=== PATIENT | male | born 1945 | race Caucasian/White ===

== ENCOUNTER 2016-12-05 08:46 | Inpatient (IN) ==
[2016-12-05] MEDS ORDERED: Albuterol 2.5 MG/3 ML NEBULIZER IH ONE (09:03)
[2016-12-05] MEDS ORDERED: CeFAZolin Pre 2,000 MG/100 ML 2,000 MG/100 ML BAG IVPB ONE (09:03)
[2016-12-05] MEDS ORDERED: Vancomycin 1,500 MG in D5% in Water 250 ML IVPB ONE ×2 (09:03→22:00)
[2016-12-05] MEDS ORDERED: Albuterol 2.5 MG/3 ML NEBULIZER ONE (09:07)
[2016-12-05] MEDS: Ringers Solution, Lactated 1,000 ML IVC SCH ×2 (09:25→13:36)
[2016-12-05] MEDS ORDERED: Acetaminophen IV 1,000 MG/100 ML INFUS..BTL IVPB ONE (09:58)
[2016-12-05] MEDS ORDERED: Famotidine 20 MG/2 ML VIAL IVP ONE (09:58)
[2016-12-05] MEDS ORDERED: Lidocaine -MPF 4% 5 ML AMPUL ONE (10:08)
[2016-12-05] MEDS ORDERED: *HR* Propofol 200 MG/20 ML VIAL IVP ONE (10:08)
[2016-12-05] MEDS ORDERED: *HR* Rocuronium Bromide 50 MG/5 ML VIAL ONE (10:08)
[2016-12-05] MEDS ORDERED: *HR* Succinylcholine 200 MG/10 ML VIAL IVP ONE (10:08)
[2016-12-05] MEDS ORDERED: Dexamethasone 4 MG/ML VIAL ONE (10:08)
[2016-12-05] MEDS ORDERED: Lidocaine -MPF 2% 2 ML VIAL ONE (10:08)
[2016-12-05] MEDS ORDERED: Ondansetron 4 MG/2 ML VIAL ONE (10:08)
[2016-12-05] MEDS ORDERED: *HR* FentaNYL (PF) 100 MCG/2 ML VIAL ONE ×2 (10:10→13:06)
--- NOTE | 2016-12-05 10:10 | Anesthesia Evaluation PreOp ---
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 Other Medical History: Denies Any Significant HX Anesthesia History: No Prior Anesthetic Complications Alcohol Use: none Drug use: none Medications and Allergies Aspirin 81 mg PO DAILY 09/29/15 [History] Atorvastatin Calcium [Lipitor] 20 mg PO BID 09/29/15 [History] Dutasteride [Avodart] 0.5 mg PO DAILY 09/29/15 [History] Fenofibrate [Lofibra] 160 mg PO DAILY 09/29/15 [History] Metoprolol [Lopressor] 25 mg PO BID 09/29/15 [History] [place] Oil/[place]-3 Fatty Acids [Fish Oil 500 mg Softgel] 1 each PO DAILY [History] Tamsulosin [Flomax] 0.4 mg PO HS 09/29/15 [History] Valsartan [Diovan] 80 mg PO DAILY 09/29/15 [History] Acetaminophen [Tylenol] 650 mg PO BID 11/27/16 [History] Apixaban [Eliquis] 5 mg PO BID 11/27/16 [History] Multivitamin,Therapeutic [Thera-Tabs] 1 tab PO DAILY 11/27/16 [History] Allergies GORDO Inhibitors Adverse Reaction (Verified 12/05/16 09:55) Cough - Meds/Allergy Pre-op Review Medications Reviewed: Yes Allergies Reviewed: Yes Beta Blockers on Current Med List: Yes (Took Metoprolol last night 2029) Anesthesia Results - Labs Laboratory Tests 11/20/16 11/20/16 12:36 12:36 Hgb 13.2 Hct 38.3 Plt Count 241 Sodium 140 Potassium 4.0 BUN 17 Creatinine 0.85 - Imaging EKG: report reviewed (SR Rt BBB, old anterior infarct) Additional studies: EF 45% Anesthesia Exam O2 Sat Height 1.83 m Height 1.83 m Height 1.83 m Weight 105.687 kg Weight 105.687 kg Weight 105.687 kg O2 Sat by Pulse Oximetry 97 Vital Signs Temp Pulse Resp BP Pulse Ox 98.2 F 71 18 124/74 97 12/05/16 09:35 12/05/16 09:35 12/05/16 09:35 12/05/16 09:35 12/05/16 09:35 Height: 6'0 Weight: 233 lbs NPO (# of Hours): MN Pain Scale: 0 - HEENT Pupil (Motor): Pupils equal, EOMI Mallampati: III Denture Type: Upper: Complete Oral Opening: Less than or equal to 3 - FINANCIAL ANALYST ACCOUNTANT LOC: Oriented FINANCIAL ANALYST ACCOUNTANT Motor: Normal RUE, Normal LUE, Normal RLE, Normal LLE, Normal Face FINANCIAL ANALYST ACCOUNTANT Sensory: Normal: RUE, LUE, RLE, LLE, Face - Cardiac Rhythm: Regular Murmur: None JVD: No Carotid Bruit: No - Pulmonary Breath Sounds: bilateral Clear Respiratory Effort: Symmetrical Anesthesia Assess/Plan ASA Score: 3 (PVD CAD HTN) Modified [place] Scale for Level of Consciousness: Cooperative, oriented, and tranquil Anesthetic Plan: General Monitoring Plan: Standard Monitors, A-Line Recovery Plan: PACU (Discussed GA, A-line, agrees to proceed)
[2016-12-05] MEDS ORDERED: Vancomycin 1,000 MG VIAL ONE (11:16)
[2016-12-05] MEDS ORDERED: Heparin 1,000 UNITS/500 mL NS 0 ML ONE (11:16)
--- NOTE | 2016-12-05 11:27 | History & Physical Report ---
Date of Encounter: 12/05/16 Time of Encounter: 11:05 24 Hour HP Update - Instructions Instructions: If the History and Physical is less than 30 days old and was completed prior to A.M. admission and or procedure and has NOT been updated on calendar day of procedure please complete this update prior to performing procedure. - Update Patient reports changes in Medical Condition: No Changes in assessment/condition: No Changes in Medication: No Preop tests/diagnostics Reviewed: Yes Surgery Remains Indicated: Yes Consent for Planned Operative Procedure(s) Verified: Yes - Pre-Operative Checklist Preoperative Checklist Indicated: Yes Prophylactic Antibiotic Ordered: Yes (Vancomycin due to risk of MRSA) Home Medications Include Beta Arjun: Yes Beta Arjun Taken Today (Day of Surgery): Yes Beta Arjun Taken Yesterday (Day Prior to Surgery): Yes Is VTE Prophylaxis Indicated?: Yes
[2016-12-05] MEDS ORDERED: Heparin 1,000 UNITS/500 mL NS 500 ML ONE (11:28)
[2016-12-05] MEDS ORDERED: Acetaminophen IV 0 MG/0 ML INFUS..BTL ONE (11:29)
[2016-12-05] MEDS ORDERED: *HR* Heparin 5,000 UNIT/ML VIAL ONE ×2 (12:58→13:40)
[2016-12-05] MEDS ORDERED: Water for inj. (sterile) 10 ML IV ONE (12:58)
[2016-12-05] MEDS ORDERED: Ketorolac 15 MG/ML VIAL IVP ONE (13:44)
[2016-12-05] MEDS ORDERED: *HR* HYDROmorphone (PF) 1 MG/ML SYRINGE IVP PRN (13:44)
[2016-12-05] MEDS ORDERED: *HR* Labetalol 100 MG/20 ML MDV IVP PRN (13:44)
[2016-12-05] MEDS ORDERED: *HR* HYDROmorphone 2 MG/ML SYRINGE ONE (14:15)
--- NOTE | 2016-12-05 15:30 | Operative Note ---
Date of procedure: 12/05/16 Pre-op diagnosis: Peripheral vascular disease with disabling claudication Post-op diagnosis: same Procedure: 1. Right iliofemoral endarterectomy. 2. Right deep femoral endarterectomy. 3. Right common femoral to above knee popliteal artery bypass with 6mm Distaflo Minicuff PTFE graft. Complications: None Anesthesia: PAULO Surgeon: Tommy Stevens Registry Np: Esteban Miles Estimated blood loss (cc): 200 Specimen: Right lower extremity plaque Condition: stable Disposition: PACU Procedure in Detail: Indications: The patient is a 71 year old male with multiple medical comorbidities including coroanary artery disease, diabetes, hypertension COPD and hyperlipidemia who was found to have peripheral vascular disease with disabling claudication. He was found to have a right superficial femoral artery occlusion and severe right iliofemoral disease by angiogram. Revascularization with endarterectomy and bypass was recommended to promote healing, alleviate symptoms and reduce risk of limb loss. Procedure: An oblique incision was made over the right groin sharply. Hemostasis was obtained with electrocautery. Through a process of blunt, sharp , and electrocautery dissection, the right femoral vessels were dissected circumferentially and surrounded with vessel loops. The vessel was noted to be firm with calcifications. An incision was made on the right medial distal thigh sharply. Hemostasis was obtained with electrocautery. Through a process of blunt, sharp, and electrocautery dissection, the right above-knee popliteal artery was dissected proximally and distally and surrounded with vessel loops. A graft was tunneled between the popliteal and femoral incisions. The patient received 5000 units of heparin intravenously. The popliteal vessels were occluded and a longitudinal arteriotomy was made in the popliteal artery. The distal end of the graft was sutured in place with a running 6-0 Prolene, but not tied. Heparinized saline was infused into the lumen. Tension was applied to the femoral vessel loops. An arteriotomy was made in the common femoral artery and extended proximally and distally. Heaviliy calcified, irregular and friable plaque was noted to be present. The plaque was highly stenotic. This resulted in minimal flow was noted from the external iliac and deep femoral and superficial femoral arteries upon release of the loops. Therefore, proximal dissection was performed along the common femoral artery and above, the distal external iliac artery was dissected under the inguinal ligament until a pulse could be palpated. The artery was clamped at this level. An iliofemoral endarterectomy was the performed with a dental freer. After the plaque was removed, strong antegrade pulsatile flow was noted from the external iliac artery. The artery was then clamped. A deep femoral endarterectomy was then performed with a dental freer. Upon release of the loop, strong retrograde flow was noted from the deep femoral artery. The artery was then reoccluded. Heparinized saline was infused into the arterial lumen and the proximal limb of the bypass graft was cut to fit the defect. The graft was anastamosed with a running 6-0 Prolene. The vessels were flushed through the graft and heparin was infused into the lumen. The graft was clamped with an atraumatic clamp. Thrombin and gelfoam were used at the proximal anastamosis. The distal arterial anastomosis suture line was completed. Prior to completing the closure , the popliteal vessels were flushed and reoccluded. Heparinized saline was infused into the lumen. The anastamosis was tied and then flow was restored. Polyphasic signals were noted distal to the distal anastomosis as well as at the posterior tibial artery. Wounds were irrigated with antibiotic-containing saline. Thrombin and gelfoam were used to aid in hemostasis. Platelet rich and platelet poor plasma were infused into the wounds. Meticulous hemostasis was obtained throughout the wound with electrocautery. Wounds were reapproximated with layers of 2-0 and 3-0 Vicryl. Skin was reapproximated with 3-0 Monocryl. Sterile dressing was applied. The patient was extubated and taken to recovery room in stable condition.
--- NOTE | 2016-12-05 15:50 | Operative Note ---
Date of procedure: 12/05/16 Pre-op diagnosis: PAD/claudication Post-op diagnosis: same Procedure: Right femoral to above-knee popliteal artery bypass graft using 6 mm PTFE Distaflo mini cuff device Right common femoral artery endarterectomy Complications: None Anesthesia: ADRIÁNA Surgeon: Tommy Stevens Co-Surgeon: Esteban Miles Estimated blood loss (cc): 200 Specimen: Right femoral plaque Condition: stable Disposition: PACU Procedure in Detail: History Jeremy Camarillo is a 71-year-old white male with significant history of vascular disease. He has dense calcific lesions and obstruction of the right superficial femoral artery. The patient also has cardiac disease and is status post a TAVR at [facility]. Procedure After informed consent was obtained the patient was taken to the operating room. General endotracheal anesthesia was established. The right lower extremity was sterilely prepped and draped. A timeout protocol was observed. A 2 team surgical approach was utilized for this procedure due to the patient's comorbid conditions. As noted above he is status post recent TAVR. This also would facilitate intraoperative complex decision making and to minimize blood loss and anesthetic time. Dissections were then initiated at the common femoral and the above-knee popliteal artery simultaneously. The vessels were found to be markedly diseased. Inflammatory changes were noted at the groin level thought secondary to previous multiple cardiac catheterizations. There were also inflammatory changes involving the above-knee popliteal artery and veins. After appropriate dissection was performed and control obtained of the vessels a subsartorial tunnel was created. A 6 mm PTFE Distaflo mini cuff collateral graft was selected due to the patient's anatomy. Heparin was then administered after the graft was tunneled through the subsartorial space. After 3 minute delay was observed the arteries were clamped. The patient required right common femoral artery endarterectomy. There was dense and thick and calcific plaque present. This was a very complex plaque as it could not be removed in total but required removal in a piecemeal fashion. Simultaneous with this the distal anastomosis was created. The above-knee popliteal area that was opened headache area that was soft and calcific area was proximal and distal. The mini cuff Distaflo graft was anastomosed in end-to-side fashion to this above-knee popliteal artery. Once the common femoral artery endarterectomy was completed the proximal anastomosis was then performed in an end-to-side fashion using 6-0 Prolene suture. After appropriate backbleeding and flushing the graft was opened and pulsatile flow was once again restored into the right calf. An excellent multiphasic Doppler signal was identified over the ankle vessel. The wounds were then irrigated and hemostasis achieved. The wounds were then closed in layers using absorbable suture. Dry sterile dressings were then applied. There were no intraoperative complications. The patient tolerated the procedure well. The estimated blood loss was 200 mL. The patient was extubated in the operating room and taken to the recovery room in stable condition.
--- NOTE | 2016-12-05 15:57 | Anesthesia Evaluation Post Op ---
Date of Encounter: 12/05/16 Time of Encounter: 15:56 - Vital Signs Vital Signs: Vital Signs/O2 Sat/Glucose, Most Current Temp Pulse Resp BP Pulse Ox 12/05/16 15:54 70 16 150/84 94 L 12/05/16 15:44 98.4 F 69 16 151/74 96 12/05/16 15:34 62 16 155/72 97 12/05/16 15:24 68 14 138/71 96 12/05/16 15:14 97.8 F 72 16 144/71 98 - Lungs Lungs: Clear Ascult./Percussion - Airway Airway: Non-obstructed - Cardiovascular Regular Rate - Mental Status Mental Status: Alert & Oriented, Answers Appropriately - Pain Pain Scale: 0 - Nausea Vomiting Nausea Vomiting: Not Present - Hydration Hydration: Ice chips - Discharge PostOp Status: Transfer Patient to floor
[2016-12-05] MEDS ORDERED: Ondansetron 4 MG/2 ML VIAL IVP PRN (16:48)
[2016-12-05] MEDS ORDERED: Naloxone 0.4 MG/ML INJ IVP PRN (16:48)
[2016-12-05] MEDS ORDERED: *HR* HYDROcodone/Acet 5/325 mg TABLET PO PRN (16:48)
[2016-12-05] MEDS ORDERED: Acetaminophen 325 MG TABLET PO PRN (16:48)
[2016-12-05] MEDS ORDERED: *HR* Morphine 2 MG/ML SYRINGE IVP PRN (16:48)
[2016-12-05] MEDS: *HR* Metoprolol 5 MG/5 ML VIAL IVP SCH ×3 (18:11→23:54)
[2016-12-05] MEDS: ceFAZolin 2,000 MG in D5% in Water 100 ML IVPB SCH ×2 (18:11→23:54)
[2016-12-05] MEDS: APIXABAN 5 MG TABLET PO SCH (21:41)
[2016-12-05] MEDS: *HR* OxyCODONE Immed Rel 5 MG TABLET PO PRN (23:59)
[2016-12-06 05:19] LABS: Basophils % 0.2 %; Hematocrit 34.7 % (37.5-50.1); Hemoglobin 11.7 g/dL (12.9-16.9); Immature Granulocytes % 0.3 % (0-4); Lymphocytes # 1.2 K/mcL (0.6-4.6); Mean Corpuscular HGB Conc 33.7 g/dL (31.6-35.5); Mean Corpuscular Hemoglobin 31.3 pg (28.0-33.3); Mean Corpuscular Volume 92.8 fL (83.0-100.0); Mean Platelet Volume 9.3 fL (9.4-12.4); Monocytes # 0.7 K/mcL (0.0-1.3); Monocytes % 8.2 %; Neutrophils # 7.1 K/mcL (1.6-8.9); Platelet Count 283 K/mcL (140-400); Red Blood Count 3.74 M/mcL (4.19-5.50); Red Cell Distribution Width 12.7 % (11.5-14.5); Segmented Neutrophils % 78.3 %
[2016-12-06 05:46] LABS: BUN/Creatinine Ratio 18 (6-26); Blood Urea Nitrogen 15 mg/dL (8-26); Calcium 8.6 mg/dL (8.6-10.8); Carbon Dioxide 23 mEq/L (19-29); Chloride 102 mEq/L (98-109); Glucose 122 mg/dL (70-99); Osmolality,Calculated 286 (280-300); Potassium 4.1 mEq/L (3.5-4.5); Sodium 137 mEq/L (136-145); eGFR For African Americans > 60 (> 60); eGFR For Non-African Americans > 60 (> 60)
[2016-12-06] MEDS ORDERED: *HR* Heparin 5,000 UNIT/ML VIAL SQ SCH (06:00)
[2016-12-06] MEDS: *HR* Metoprolol 5 MG/5 ML VIAL IVP SCH (06:22)
[2016-12-06 07:29] VITALS: BP 147/76
--- NOTE | 2016-12-06 07:43 | Discharge Summary ---
Date of Encounter: 12/06/16 Time of Encounter: 10:30 - Discharge Diagnosis (1) Atherosclerosis of [place] arteries of extremities with intermittent claudication, right leg Priority: Primary Status: Chronic Comments: The patient is postoeprative day #1 after right femoral to popliteal artery bypass and right lower extremity endarterectomy. He is feeling much better. His foot is warm. His incisions are healing and his compartments are soft. He will be discharged today. (2) CAD (coronary artery disease) Priority: Secondary Status: Chronic Qualifiers: Coronary Disease-Associated Artery/Lesion type: [place] artery [place] vs. transplanted heart: [place] heart Associated angina: without angina Qualified Code(s): I25.10 - Atherosclerotic heart disease of [place] coronary artery without angina pectoris (3) Mixed hyperlipidemia Priority: Secondary Status: Chronic (4) Essential hypertension Priority: Secondary Status: Chronic Comments: He was counseled regarding atherosclerotic risk factor reduction. (5) Morbid obesity Priority: Secondary Status: Chronic Qualifiers: Obesity type: due to excess calories Qualified Code(s): E66.01 - Morbid ( severe) obesity due to excess calories (6) COPD (chronic obstructive pulmonary disease) Priority: Secondary Status: Chronic Qualifiers: COPD type: emphysema Emphysema type: panlobular Qualified Code(s): J43.1 - Panlobular emphysema (7) History of aortic valve replacement Priority: Secondary Status: Chronic Comments: Percutaneous valve replacement 10/18/16. - Discharge Medications Prescriptions: OxyCODONE Immed Rel [Roxicodone 5 MG] 1 tab PO Q4H PRN #40 tablet PRN Reason: POSTOPERATIVE PAIN Home Medications: Aspirin 81 mg PO DAILY 09/29/15 [History] Atorvastatin Calcium [Lipitor] 20 mg PO BID 09/29/15 [History] Dutasteride [Avodart] 0.5 mg PO DAILY 09/29/15 [History] Fenofibrate [Lofibra] 160 mg PO DAILY 09/29/15 [History] Metoprolol [Lopressor] 25 mg PO BID 09/29/15 [History] [place] Oil/[place]-3 Fatty Acids [Fish Oil 500 mg Softgel] 1 each PO DAILY [History] Tamsulosin [Flomax] 0.4 mg PO HS 09/29/15 [History] Valsartan [Diovan] 80 mg PO DAILY 09/29/15 [History] Acetaminophen [Tylenol] 650 mg PO BID 11/27/16 [History] Apixaban [Eliquis] 5 mg PO BID 11/27/16 [History] Multivitamin,Therapeutic [Thera-Tabs] 1 tab PO DAILY 11/27/16 [History] OxyCODONE Immed Rel [Roxicodone 5 MG] 1 tab PO Q4H PRN #40 tablet 12/06/16 [Rx] Allergies/Adverse Reactions: Allergies GORDO Inhibitors Adverse Reaction (Verified 12/05/16 09:55) Cough Date of admission: 12/05/16 16:29 Primary care physician: Tammy Jameson CNP Procedure(s) Performed: Right femoral to popliteal artery bypass Discharging clinician: Tommy Stevens Anticipated date of discharge: 12/10/16 - Patient Status Disposition: Home, Self-Care Condition: Good Functional capacity at discharge: independent ambulation Overall status at discharge: patient is back to baseline - Discharge Instructions Instructions: Oxycodone, Rapid Release (By mouth), Heart Healthy Diet (DC), Femoropopliteal Bypass (DC), Peripheral Vascular Disorders (DC) Follow Up With: Tommy Stevens MD [Partnered Physician] - 01/14/17 3:30 pm Tammy Jameson CNP [Primary Care Provider] - 12/12/16 4:00 pm Additional Instructions: May remove bandages and shower on 12/07/2016. Wash wound gently and pat to dry. Place dry gauze on wound daily for 7 days. No tub baths or swimming until 12/28/2016. Call Dr. Stevens at [phone] with questions or concerns. - Diet and Activity Activity: increase activity as tolerated Diet: low fat, low cholesterol - Hospital Course Hospital course: Mr. Camarillo is a 71 year old male with multiple medical comorbidities who was admitted on 12/05/16. He underwent a right lower extremity endarterectomy and right femoral to popliteal artery bypass. He tolerated the procedure well. On postoperative day #1 his pain was controlled. He was alert and comfortable. His compartments were soft and his feet were warm. He was discharged in stable condition without complication. - Time Spent with Patient Total time spent providing and/or coordinating discharge services: Exam Vital Signs, Last 4 Hours Temp Pulse Resp BP Pulse Ox 12/06/16 07:28 97.9 F 81 18 147/76 95 12/06/16 04:48 98.5 F 77 15 154/75 95 General: Present: Conversant, No Apparent Distress HEENT: Present: Pupils equal Neck: Absent: JVD Cardiac: Present: No Murmur Lungs: Present: Normal Breath Sounds Neuro: Present: Alert and responsive, No focal deficits noted Abdomen: Present: Soft, Non-tender Vascular: Present: Normal capillary refill, Pulse, normal, Surgical incisions ( clean dry and intact without erythema, hematoma or drainage). Absent: Cyanosis , Edema Skin: Present: No rashes noted on visualized skin - VTE Documentation of Mechanical Device: Intermittent pneumatic compression device
[2016-12-06] MEDS ORDERED: Valsartan 80 MG TABLET PO SCH (09:00)
[2016-12-06] MEDS ORDERED: Finasteride 5 MG TABLET PO SCH (09:00)
[2016-12-06] MEDS ORDERED: Multivit/Ca/Min/Fe/FA 1 TAB TABLET PO SCH (09:00)
[2016-12-06] MEDS ORDERED: Aspirin 81 MG TAB.CHEW PO SCH (09:00)
[2016-12-06] MEDS ORDERED: (Salmon Oil/Omega-3 Fatty Acids [Fish Oil 500 Mg Soft PO SCH (09:00)
[2016-12-06] MEDS ORDERED: Fenofibrate 54 MG TABLET PO SCH (09:00)
[2016-12-06] MEDS: APIXABAN 5 MG TABLET PO SCH (09:16)
[2016-12-06] MEDS: *HR* OxyCODONE Immed Rel 5 MG TABLET PO PRN (11:22)
== END 2016-12-06 11:50 | disposition home or self-care (01) | DRG 272 ==
LOC: SAMDAY 08:46 → 2NNU 16:29
PROVIDERS: ADMIT Surgery; ATTEND Surgery

== ENCOUNTER 2018-05-15 11:37 | Observation (INO) ==
--- NOTE | 2018-05-15 12:17 | Emergency Department Note ---
Disposition Clinical Impression: Weakness, History of aortic valve replacement Dyspnea Qualifiers: Dyspnea type: unspecified Qualified Code(s): R06.00 - Dyspnea, unspecified Disposition: Admitted As Inpatient Condition: Fair Referrals: Lake Brooks MD [Primary Care Provider] - Time of Disposition: 13:25 SOB HPI - General Chief Complaint: ED Shortness of Breath/Dyspnea Stated Complaint: JADE Time Seen by Provider: 05/15/18 11:42 Source: patient Mode of arrival: wheelchair Limitations: no limitations Nursing Notes Reviewed: Yes Vital Signs Reviewed: Yes - History of Present Illness 72-year-old male with a history of CAD status post bypass, hypertension, aortic valve replacement presents for evaluation of dyspnea and generalized weakness. Patient also describes fatigue. Family states the patient has become more dyspneic over the past "few days". States the patient has progressive dyspnea mostly with exertion. Patient also states he has been sleeping more. Notes generally feeling weak. Denies any chest pain. No fevers. No nausea or vomiting. No orthopneic symptoms for the patient. Does state that he has a pig valve in the past. Patient also reports he has a history of A. fib. Patient also had some intermittent leg swelling. Patient denies any problems pain urinating. No history of any kidney disease. - Related Data Home Medications Medication Instructions Recorded Confirmed Aspirin 81 mg PO DAILY 09/29/15 05/15/18 Atorvastatin Calcium [Lipitor] 20 mg PO BID 09/29/15 05/15/18 Dutasteride [Avodart] 0.5 mg PO DAILY 09/29/15 05/15/18 Fenofibrate [Lofibra] 160 mg PO DAILY 09/29/15 05/15/18 Metoprolol [Lopressor] 25 mg PO BID 09/29/15 05/15/18 [place] Oil/[place]-3 Fatty Acids 1 each PO DAILY 09/29/15 05/15/18 [Fish Oil 500 mg Softgel] Tamsulosin [Flomax] 0.4 mg PO HS 09/29/15 05/15/18 Acetaminophen [Tylenol] 650 mg PO BID 11/27/16 05/15/18 Apixaban [Eliquis] 5 mg PO BID 11/27/16 05/15/18 Multivitamin,Therapeutic 1 tab PO DAILY 11/27/16 05/15/18 [Thera-Tabs] Losartan/Hydrochlorothiazide 1 tab PO DAILY 05/15/18 05/15/18 [Losartan-Hctz 50-12.5 mg Tab] Tizanidine HCl 2 mg PO QPM 05/15/18 05/15/18 Allergies Allergy/AdvReac Type Severity Reaction Status Date / Time GORDO Inhibitors AdvReac Cough Verified 12/05/16 09:55 All systems ED: reviewed and negative except as stated. Constitutional: Denies: fever Cardiovascular: Denies: chest pain Respiratory: Denies: cough Gastrointestinal: Denies: abdominal pain, nausea, vomiting Past Medical History - Past Medical History Source: patient Medical history: Reports: hyperlipidemia, hypertension, myocardial infarction, other Surgical history: Reports: angioplasty/stent, coronary bypass (CABG) Psychiatric history: Reports: no psych history - Social History Smoking Status: Former smoker Smokeless Tobacco Status: No Alcohol use: Reports: none Drug use: Reports: none Physical Exam - General Limitations: no limitations General appearance: alert, in no apparent distress - Head Head exam: atraumatic, normal inspection - Eye Eye exam: Present: normal appearance, EOMI - ENT ENT exam: normal exam, mucous membranes moist - Neck Neck exam: Present: normal inspection, trachea midline - Chest Chest inspection: Present: normal inspection, symmetric chest wall rise - Respiratory Respiratory exam: Present: normal lung sounds bilaterally. Absent: respiratory distress - Cardiovascular Cardiovascular exam: Present: regular rate, normal rhythm. Absent: systolic murmur - Abdominal Exam Abdominal exam: Present: soft. Absent: guarding, rebound - Extremities Exam Extremities exam: Present: normal inspection. Absent: pedal edema - Expanded Lower Extremity Exam Neurovascular/Tendon exam: Present: normal capillary refill - Neurological Exam Neurological exam: Present: alert - Skin Skin exam: Present: warm, dry, intact, normal color Course Course Narrative: Patient will get basic cardiopulmonary screening evaluation. Initial concerns for subclinical congestive heart failure. Denying any chest pain. Patient will be admitted to the hospital service. Vital Signs Temperature 98.4 F 05/15/18 11:40 Pulse Rate 75 05/15/18 11:40 Respiratory Rate 18 05/15/18 11:40 Blood Pressure 129/75 05/15/18 11:40 O2 Sat by Pulse Oximetry 97 05/15/18 11:40 Temperature 98.4 F 05/15/18 13:50 Pulse Rate 75 05/15/18 13:50 Respiratory Rate 14 05/15/18 13:50 Blood Pressure 133/70 05/15/18 15:15 O2 Sat by Pulse Oximetry 97 05/15/18 13:50 Oxygen Delivery Oxygen Delivery Room Air Shortness of Breath/Dyspnea - MDM Narrative Medical decision making narrative: Patient presents for concerns of dyspnea most with exertion. Patient does not have any pulmonary embolism criteria. 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 Notes progressive dyspnea. Concerns of the patient's dyspnea being ACS equivalent. Patient chest x-ray does not reveal any acute abnormalities. Patient's kidney function is normal. Patient does have history of aortic valve replacement. Patient benefit from further hospitalist management with serial troponins as well as an echo. - Lab Data Lab results reviewed: Yes I reviewed the patient's lab results. Result diagrams: 05/15/18 11:54 05/15/18 11:54 Lab Results 05/15/18 05/15/18 05/15/18 Range/Units 11:54 11:54 11:54 WBC 5.0 (4.3-11.1) K/mcL RBC 4.50 (4.19-5.50) M/mcL Hgb 14.5 (12.9-16.9) g/dL Hct 42.8 (37.5-50.1) % MCV 95.1 (83.0-100.0) fL MCH 32.2 (28.0-33.3) pg MCHC 33.9 (31.6-35.5) g/dL RDW 12.7 (11.5-14.5) % Plt Count 264 (140-400) K/mcL MPV 9.5 (9.4-12.4) fL Immature Gran % 0.2 (0-4) % Seg Neutrophils % 59.1 % Lymphocytes % 30.3 % Monocytes % 7.8 % Eosinophils % 1.8 % Basophils % 0.8 % Neutrophils # 3.0 (1.6-8.9) K/mcL Lymphocytes # 1.5 (0.6-4.6) K/mcL Monocytes # 0.4 (0.0-1.3) K/mcL Eosinophils # 0.1 (0.0-0.6) K/mcL Basophils # 0.0 (0.0-0.2) K/mcL PT 15.4 H (9.4-12.1) Seconds INR 1.4 Sodium 138 (136-145) mEq/L Potassium 3.9 (3.5-5.1) mEq/L Chloride 103 (98-107) mEq/L Carbon Dioxide 29 (23-29) mEq/L BUN 17 (8-23) mg/dL Creatinine 0.84 (0.70-1.30) mg/dL Est GFR ( Amer) > 60 (> 60) Est GFR (Non-Af Amer) > 60 (> 60) BUN/Creatinine Ratio 20 (6-26) Glucose 129 H (70-105) mg/dL Calculated Osmolality 289 (280-300) Calcium 9.7 (8.6-10.3) mg/dL Troponin I < 0.03 (< 0.04) ng/mL B-Natriuretic Peptide (Less than 100) pg/mL Urine Color (Yellow) Urine Clarity (Clear) Urine pH (5.0-8.0) pH Units Ur Specific [place] (1.010-1.025) Urine Protein (Neg-Trace) mg/dL Urine Glucose (UA) (Normal) mg/dL Urine Ketones (Negative) mg/dL Urine Blood (Negative) Urine Nitrite (Negative) Urine Bilirubin (Negative) Urine Urobilinogen (Normal) mg/dL Ur Leukocyte Esterase (Negative) Ur Culture Indicated? (NO) 05/15/18 05/15/18 Range/Units 11:54 13:00 WBC (4.3-11.1) K/mcL RBC (4.19-5.50) M/mcL Hgb (12.9-16.9) g/dL Hct (37.5-50.1) % MCV (83.0-100.0) fL MCH (28.0-33.3) pg MCHC (31.6-35.5) g/dL RDW (11.5-14.5) % Plt Count (140-400) K/mcL MPV (9.4-12.4) fL Immature Gran % (0-4) % Seg Neutrophils % % Lymphocytes % % Monocytes % % Eosinophils % % Basophils % % Neutrophils # (1.6-8.9) K/mcL Lymphocytes # (0.6-4.6) K/mcL Monocytes # (0.0-1.3) K/mcL Eosinophils # (0.0-0.6) K/mcL Basophils # (0.0-0.2) K/mcL PT (9.4-12.1) Seconds INR Sodium (136-145) mEq/L Potassium (3.5-5.1) mEq/L Chloride (98-107) mEq/L Carbon Dioxide (23-29) mEq/L BUN (8-23) mg/dL Creatinine (0.70-1.30) mg/dL Est GFR ( Amer) (> 60) Est GFR (Non-Af Amer) (> 60) BUN/Creatinine Ratio (6-26) Glucose (70-105) mg/dL Calculated Osmolality (280-300) Calcium (8.6-10.3) mg/dL Troponin I (< 0.04) ng/mL B-Natriuretic Peptide 78 (Less than 100) pg/mL Urine Color Yellow (Yellow) Urine Clarity Clear (Clear) Urine pH 6.0 (5.0-8.0) pH Units Ur Specific [place] 1.024 (1.010-1.025) Urine Protein Negative (Neg-Trace) mg/dL Urine Glucose (UA) Normal (Normal) mg/dL Urine Ketones Negative (Negative) mg/dL Urine Blood Negative (Negative) Urine Nitrite Negative (Negative) Urine Bilirubin Negative (Negative) Urine Urobilinogen Normal (Normal) mg/dL Ur Leukocyte Esterase Negative (Negative) Ur Culture Indicated? NO (NO) - Radiology Data Radiology results reviewed: Yes I reviewed the patient's radiology results. Chest X-Ray 05/15/18 12:12 IMPRESSION: No acute process. Stable exam. D/ / Derrick Ferguson MD / Derrick Ferguson MD Interpreting Provider: Derrick Ferguson MD - EKG Data EKG attestation: Yes I reviewed and interpreted this EKG. EKG shows normal: Reports: sinus rhythm Rate: Reports: normal Rhythm: Reports: NSR [place]/QRS: Reports: left axis deviation, RBBB Q waves: Reports: II, aVF T wave inversions noted in: Reports: v3 Interpretation: Reports: no acute changes, unchanged when compared to prior tracing (date), nonspecific ST-T wave changes S.B.A.R. - S.B.A.R. Situation: Demographics Background: Presenting Complaint Assessment: Vital Signs, Course and respsone to treatment, Patient/Family Expectation Recommendation: Barrier(s) to disposition, Recommendation based on pending studies, treatments, or consults S.B.A.R. Report Given to: Dr. Raleigh Sebastian Repor Time: 13:25 Attestation Statement - Attestation Attestation: I, Alon Oswald DO, examined this patient [id number] and my medical decision-making was reviewed with Dr. Greg Lee, Resident Physician. I agree with the documented findings, disposition and treatment plan as described except to the extent set forth below. Please see my progress notes for details.
[2018-05-15 12:29] LABS: Basophils % 0.8 %; Eosinophils # 0.1 K/mcL (0.0-0.6); Eosinophils % 1.8 %; Hematocrit 42.8 % (37.5-50.1); Hemoglobin 14.5 g/dL (12.9-16.9); Immature Granulocytes % 0.2 % (0-4); Lymphocytes # 1.5 K/mcL (0.6-4.6); Lymphocytes % 30.3 %; Mean Corpuscular HGB Conc 33.9 g/dL (31.6-35.5); Mean Corpuscular Hemoglobin 32.2 pg (28.0-33.3); Mean Corpuscular Volume 95.1 fL (83.0-100.0); Mean Platelet Volume 9.5 fL (9.4-12.4); Monocytes # 0.4 K/mcL (0.0-1.3); Monocytes % 7.8 %; Platelet Count 264 K/mcL (140-400); Red Cell Distribution Width 12.7 % (11.5-14.5); Segmented Neutrophils % 59.1 %
[2018-05-15 12:35] LABS: INR 1.4; Prothrombin Time 15.4 Seconds (9.4-12.1)
[2018-05-15 12:45] LABS: BUN/Creatinine Ratio 20 (6-26); Blood Urea Nitrogen 17 mg/dL (8-23); Calcium 9.7 mg/dL (8.6-10.3); Carbon Dioxide 29 mEq/L (23-29); Chloride 103 mEq/L (98-107); Glucose 129 mg/dL (70-105); Osmolality,Calculated 289 (280-300); Potassium 3.9 mEq/L (3.5-5.1); Sodium 138 mEq/L (136-145); eGFR For Non-African Americans > 60 (> 60)
[2018-05-15 12:46] LABS: Troponin I < 0.03 ng/mL (< 0.04)
[2018-05-15 13:26] LABS: Bilirubin,Urine Negative (Negative); Blood,Urine Negative (Negative); Clarity,Urine Clear (Clear); Color,Urine Yellow (Yellow); Glucose,Urine (UA) Normal (Normal); Ketones,Urine Negative (Negative); Leukocyte Esterase,Urine Negative (Negative); Nitrite,Urine Negative (Negative); Protein,Urine Negative (Neg-Trace); Specific Gravity,Urine 1.024 (1.010-1.025); Urobilinogen,Urine Normal (Normal)
[2018-05-15] MEDS ORDERED: Aspirin 325 MG TABLET PO ONE (13:26)
--- NOTE | 2018-05-15 14:27 | Emergency Department Note ---
Disposition Clinical Impression: Weakness, History of aortic valve replacement Dyspnea Qualifiers: Dyspnea type: unspecified Qualified Code(s): R06.00 - Dyspnea, unspecified Disposition: Admitted As Inpatient Condition: Fair Referrals: Lake Brooks MD [Primary Care Provider] - Time of Disposition: 15:25 General Adult HPI - General Chief complaint: ED Shortness of Breath/Dyspnea Stated complaint: JADE Time Seen by Provider: 05/15/18 11:42 Source: patient Mode of arrival: wheelchair Limitations: no limitations - History of Present Illness Pain Scale: 0 - Related Data Home Medications Medication Instructions Recorded Confirmed Aspirin 81 mg PO DAILY 09/29/15 05/15/18 Atorvastatin Calcium [Lipitor] 20 mg PO BID 09/29/15 05/15/18 Dutasteride [Avodart] 0.5 mg PO DAILY 09/29/15 05/15/18 Fenofibrate [Lofibra] 160 mg PO DAILY 09/29/15 05/15/18 Metoprolol [Lopressor] 25 mg PO BID 09/29/15 05/15/18 [place] Oil/[place]-3 Fatty Acids 1 each PO DAILY 09/29/15 05/15/18 [Fish Oil 500 mg Softgel] Tamsulosin [Flomax] 0.4 mg PO HS 09/29/15 05/15/18 Acetaminophen [Tylenol] 650 mg PO BID 11/27/16 05/15/18 Apixaban [Eliquis] 5 mg PO BID 11/27/16 05/15/18 Multivitamin,Therapeutic 1 tab PO DAILY 11/27/16 05/15/18 [Thera-Tabs] Losartan/Hydrochlorothiazide 1 tab PO DAILY 05/15/18 05/15/18 [Losartan-Hctz 50-12.5 mg Tab] Tizanidine HCl 2 mg PO QPM 05/15/18 05/15/18 Allergies Allergy/AdvReac Type Severity Reaction Status Date / Time GORDO Inhibitors AdvReac Cough Verified 12/05/16 09:55 Constitutional: Denies: fever Cardiovascular: Denies: chest pain Respiratory: Denies: cough Gastrointestinal: Denies: abdominal pain, nausea, vomiting Past Medical History - Past Medical History Medical history: Reports: hyperlipidemia, hypertension, myocardial infarction, other Surgical history: Reports: angioplasty/stent, coronary bypass (CABG) Psychiatric history: Reports: no psych history - Social History Smoking Status: Former smoker Smokeless Tobacco Status: No Alcohol use: Reports: none Drug use: Reports: none Physical Exam - General Limitations: no limitations General appearance: alert, in no apparent distress Course Vital Signs Temperature 98.4 F 05/15/18 11:40 Pulse Rate 75 05/15/18 11:40 Respiratory Rate 18 05/15/18 11:40 Blood Pressure 129/75 05/15/18 11:40 O2 Sat by Pulse Oximetry 97 05/15/18 11:40 Temperature 98.4 F 05/15/18 13:50 Pulse Rate 75 05/15/18 13:50 Respiratory Rate 14 05/15/18 13:50 Blood Pressure 133/69 05/15/18 13:50 O2 Sat by Pulse Oximetry 97 05/15/18 13:50 Oxygen Delivery Oxygen Delivery Room Air Medical Decision Making - Lab Data Result diagrams: 05/15/18 11:54 05/15/18 11:54 Lab Results 05/15/18 05/15/18 05/15/18 Range/Units 11:54 11:54 11:54 WBC 5.0 (4.3-11.1) K/mcL RBC 4.50 (4.19-5.50) M/mcL Hgb 14.5 (12.9-16.9) g/dL Hct 42.8 (37.5-50.1) % MCV 95.1 (83.0-100.0) fL MCH 32.2 (28.0-33.3) pg MCHC 33.9 (31.6-35.5) g/dL RDW 12.7 (11.5-14.5) % Plt Count 264 (140-400) K/mcL MPV 9.5 (9.4-12.4) fL Immature Gran % 0.2 (0-4) % Seg Neutrophils % 59.1 % Lymphocytes % 30.3 % Monocytes % 7.8 % Eosinophils % 1.8 % Basophils % 0.8 % Neutrophils # 3.0 (1.6-8.9) K/mcL Lymphocytes # 1.5 (0.6-4.6) K/mcL Monocytes # 0.4 (0.0-1.3) K/mcL Eosinophils # 0.1 (0.0-0.6) K/mcL Basophils # 0.0 (0.0-0.2) K/mcL PT 15.4 H (9.4-12.1) Seconds INR 1.4 Sodium 138 (136-145) mEq/L Potassium 3.9 (3.5-5.1) mEq/L Chloride 103 (98-107) mEq/L Carbon Dioxide 29 (23-29) mEq/L BUN 17 (8-23) mg/dL Creatinine 0.84 (0.70-1.30) mg/dL Est GFR ( Amer) > 60 (> 60) Est GFR (Non-Af Amer) > 60 (> 60) BUN/Creatinine Ratio 20 (6-26) Glucose 129 H (70-105) mg/dL Calculated Osmolality 289 (280-300) Calcium 9.7 (8.6-10.3) mg/dL Troponin I < 0.03 (< 0.04) ng/mL B-Natriuretic Peptide (Less than 100) pg/mL Urine Color (Yellow) Urine Clarity (Clear) Urine pH (5.0-8.0) pH Units Ur Specific [place] (1.010-1.025) Urine Protein (Neg-Trace) mg/dL Urine Glucose (UA) (Normal) mg/dL Urine Ketones (Negative) mg/dL Urine Blood (Negative) Urine Nitrite (Negative) Urine Bilirubin (Negative) Urine Urobilinogen (Normal) mg/dL Ur Leukocyte Esterase (Negative) Ur Culture Indicated? (NO) 05/15/18 05/15/18 Range/Units 11:54 13:00 WBC (4.3-11.1) K/mcL RBC (4.19-5.50) M/mcL Hgb (12.9-16.9) g/dL Hct (37.5-50.1) % MCV (83.0-100.0) fL MCH (28.0-33.3) pg MCHC (31.6-35.5) g/dL RDW (11.5-14.5) % Plt Count (140-400) K/mcL MPV (9.4-12.4) fL Immature Gran % (0-4) % Seg Neutrophils % % Lymphocytes % % Monocytes % % Eosinophils % % Basophils % % Neutrophils # (1.6-8.9) K/mcL Lymphocytes # (0.6-4.6) K/mcL Monocytes # (0.0-1.3) K/mcL Eosinophils # (0.0-0.6) K/mcL Basophils # (0.0-0.2) K/mcL PT (9.4-12.1) Seconds INR Sodium (136-145) mEq/L Potassium (3.5-5.1) mEq/L Chloride (98-107) mEq/L Carbon Dioxide (23-29) mEq/L BUN (8-23) mg/dL Creatinine (0.70-1.30) mg/dL Est GFR ( Amer) (> 60) Est GFR (Non-Af Amer) (> 60) BUN/Creatinine Ratio (6-26) Glucose (70-105) mg/dL Calculated Osmolality (280-300) Calcium (8.6-10.3) mg/dL Troponin I (< 0.04) ng/mL B-Natriuretic Peptide 78 (Less than 100) pg/mL Urine Color Yellow (Yellow) Urine Clarity Clear (Clear) Urine pH 6.0 (5.0-8.0) pH Units Ur Specific [place] 1.024 (1.010-1.025) Urine Protein Negative (Neg-Trace) mg/dL Urine Glucose (UA) Normal (Normal) mg/dL Urine Ketones Negative (Negative) mg/dL Urine Blood Negative (Negative) Urine Nitrite Negative (Negative) Urine Bilirubin Negative (Negative) Urine Urobilinogen Normal (Normal) mg/dL Ur Leukocyte Esterase Negative (Negative) Ur Culture Indicated? NO (NO) Attestation Statement - Attestation Attestation: I, Alon Oswald DO, examined this patient [id number] and my medical decision-making was reviewed with Dr. Greg Lee, Resident Physician. I agree with the documented findings, disposition and treatment plan as described except to the extent set forth below. Please see my progress notes for details. 71-year-old male presents to the emergency room with several days of progressively worsening shortness of breath and generalized malaise. Patient does have a significant cardiac history with multivessel bypass and a pig valve. Patient had the pigtail replaced this September the endovascular procedure. Patient is on Eliquis at this time for anticoagulation. He denies any recent falls or trauma. He has no chest pain no fevers no chills no nausea vomiting or diarrhea. Denies any headache or vision changes. His main complaint is generalized malaise and increasing shortness of breath. On physical exam patient is in no apparent distress head is atraumatic pupils are round reactive extracted muscles intact no stridor no trismus. Lungs are clear to auscultation heart is regular but does have paroxysmal A. fib. Patient's abdomen is soft nontender nondistended no guarding no rigidity. Minimal amount of edema in the lower extremities but no specific signs of pitting edema. Patient does have a pig valve at this time from aortic valve replacement. No murmur noted on exam at this time. Patient moves all 4 of his extremities without any difficulty. He does describe exertional dyspnea that is worse with the last several days. Concern is noted for heart failure versus valvular related issue. Patient will have detailed workup completed here a chest x-ray EKG CBC chemistry and troponin along with screening electrolyte workup. Patient will most every required admission. Otherwise patient's clinical stable. See detailed documentation the physical exam, medical intervention, medical decision-making and disposition in the resident physician's note. No critical care by the patient's treatment course at this time. 1430 Patient is found to have stable examination here today. Troponin and labs are otherwise unremarkable. Chest x-ray stable with no significant signs of pulmonary congestion. Patient will be admitted for observation secondary to exertional dyspnea. Patient is still denying chest pain but otherwise is comfortable. In addition process to be completed. Hospitalist Dr. baker review the presentation and symptoms and in no other concerns or issues this time. Admission process to be completed. Patient is artery on Eliquis. Aspirin will be given for prophylactic cardiac treatment.
[2018-05-15] MEDS ORDERED: Naloxone 0.4 MG/ML INJ IVP PRN (15:17)
[2018-05-15] MEDS ORDERED: 0.9 % Sodium Chloride 1,000 ML IVC SCH (15:30)
[2018-05-15] MEDS ORDERED: tiZANidine 4 MG TABLET PO SCH (18:00)
[2018-05-15] MEDS: Acetaminophen 325 MG TABLET PO SCH (19:53)
[2018-05-15] MEDS: Apixaban 5 MG TABLET PO SCH (19:53)
--- NOTE | 2018-05-15 22:03 | Internal Med History&Physical ---
Date of Encounter: 05/15/18 Time of Encounter: 19:00 Internal Medicine - H&P: HPI Chief complaint: WEAKNESS Admitted From: Home Plans for Post Hospital Care: Home History of present illness: Mr. Camarillo is a 72 year old male. HPI: We admitted this patient with weakness. It started yesterday afternoon, when he pulled out of his chair (was sitting for a while). The weakness was overwhelming; decided to go to sleep. He slept all afternoon without interruptions; then, slept off and on evening and night. He feels better today. He has not experienced any chest pain or difficulty breathing recently. Denies coughing and wheezing. He ambulates on his own. He is not using supplemental oxygen. He tells me that he had a few heart attacks in the past; it showed them was running without any chest pain. His last echocardiogram was done in November of this year. It showed ejection fraction of 50-55%. His last pharmacologic stress test was done in July 2015 it showed severe fixed perfusion defect throughout the inferior, inferior lateral and apical segments suggesting previous infarctions. The study was negative for mike-infarct ischemia or ischemia elsewhere. He has had underlying atrial fibrillation; takes Eliquis. He has CAD/PAD. He is treated for hypertension, hyperlipidemia and BPH. He takes tizanidine for pain in the legs. He had CABG surgery; angioplasty/stents. He had aortic valve replaced with bioprosthetic one in November 2017. REVIEW OF SYSTEMS: All 14 organ systems were reviewed by me with the patient. Positive and pertinent negative findings are listed above. The rest of organ systems is negative. PHYSICAL EXAM: Skin: Free of rash and discoloration. Eyes: Sclera is white. There is no discharge from eyes. ENMT: Oral/pharyngeal mucosa is normal in appearance. There is no discharge from nose or ears. Respiratory: Normal breath sounds with no crackles and wheezes bilaterally. CV: Heart is regular with no gallop or murmur. GI: Abdomen is flat and soft with no palpable mass or visceromegaly. : There is no tenderness in patient's flanks bilaterally. Neuro exam: He has good strength in upper and lower extremities. He has normal eye movements. Psychiatric: He has normal affect. His thought process is appropriate to the situation. A/P: Weakness. He has normal CBC and BMP. His first troponin is normal; will get the second one. BNP 78. His chest x-ray shows normal findings. Will obtain echocardiogram to check his bioprosthetic valve. Coronary artery disease/PAD. We will keep him on Lopressor, Lipitor/TriCor, aspirin and losartan/HCTZ. Atrial fibrillation. Rate control. We will continue Lopressor and Eliquis. Hypertension. Under control. We will continue Lopressor and losartan/HCTZ. Hyperlipidemia. Will continue Lipitor/TriCor. He is on cardiac diet. Past Med Surg Social Fam HX - Past Medical History Medical history: hyperlipidemia, hypertension, myocardial infarction, other Additional medical history: 4 previous MIs Psychiatric history: no psych history - Past Surgical History Surgical History: angioplasty/stent, coronary bypass (CABG) Additional surgical history: skin ca removal (nose, face) - Social History Smoking Status: Former smoker Smokeless Tobacco Status: No Alcohol use: none Drug use: none - Family History Mother Hx Family Cardiac Disorders: Yes (MD) Father Hx Family Respiratory Disorders: Yes (lung ca) Internal Medicine - H&P: Meds Aspirin 81 mg PO DAILY 09/29/15 [History] Atorvastatin Calcium [Lipitor] 20 mg PO BID 09/29/15 [History] Dutasteride [Avodart] 0.5 mg PO DAILY 09/29/15 [History] Fenofibrate [Lofibra] 160 mg PO DAILY 09/29/15 [History] Metoprolol [Lopressor] 25 mg PO BID 09/29/15 [History] [place] Oil/[place]-3 Fatty Acids [Fish Oil 500 mg Softgel] 1 each PO DAILY [History] Tamsulosin [Flomax] 0.4 mg PO HS 09/29/15 [History] Acetaminophen [Tylenol] 650 mg PO BID 11/27/16 [History] Apixaban [Eliquis] 5 mg PO BID 11/27/16 [History] Multivitamin,Therapeutic [Thera-Tabs] 1 tab PO DAILY 11/27/16 [History] Losartan/Hydrochlorothiazide [Losartan-Hctz 50-12.5 mg Tab] 1 tab PO DAILY 05/15 [History] Tizanidine HCl 2 mg PO QPM 05/15/18 [History] 3 Allergy/AdvReac Type Severity Reaction Status Date / Time GORDO Inhibitors AdvReac Cough Verified 12/05/16 09:55 - Constitutional Vitals: Temp Pulse Resp BP Pulse Ox 97.9 F 78 16 141/66 96 05/15/18 20:33 05/15/18 20:33 05/15/18 20:33 05/15/18 20:33 05/15/18 20:33 General appearance: Present: A&O X 3, no acute distress, answers questions appropriately Internal Med - H&P Results - Labs CBC & Chem 7: 05/15/18 11:54 05/15/18 11:54 Labs: Cardiac Enzymes 05/15/18 Range/Units 16:00 Troponin I < 0.03 (< 0.04) ng/mL - VTE Reasons for not Prescribing Prophylaxis: Treatment not Indicated - Low risk for VTE Deep Vein Thrombosis/Pulmonary Embolism Present on Admission: No - Time Spent With Patient Total time spent is greater than 50% in coordination of care (as documented) at patient's floor/unit and/or counseling patient:
[2018-05-16] MEDS ORDERED: Finasteride 5 MG TABLET PO SCH (09:00)
[2018-05-16] MEDS ORDERED: Aspirin 81 MG TAB.CHEW PO SCH (09:00)
[2018-05-16] MEDS ORDERED: Fenofibrate 54 MG TABLET PO SCH (09:00)
[2018-05-16] MEDS ORDERED: Multivit/Ca/Min/Fe/FA 1 TAB TABLET PO SCH (09:00)
[2018-05-16] MEDS ORDERED: Losartan/HCTZ 50-12.5 TABLET PO SCH (09:00)
[2018-05-16] MEDS: Acetaminophen 325 MG TABLET PO SCH ×2 (10:04→11:05)
[2018-05-16] MEDS: Apixaban 5 MG TABLET PO SCH (10:04)
--- NOTE | 2018-05-16 10:47 | Discharge Summary ---
Orders not resulted at time of discharge: echo report is pending.. Date of Encounter: 05/16/18 Time of Encounter: 10:44 - Discharge Diagnosis (1) Weakness Priority: Primary Status: Acute (2) CAD (coronary artery disease) Priority: Secondary Status: Chronic Qualifiers: Coronary Disease-Associated Artery/Lesion type: jackson artery [place] vs. transplanted heart: jackson heart Associated angina: without angina Qualified Code(s): I25.10 - Atherosclerotic heart disease of jackson coronary artery without angina pectoris (3) PAF (paroxysmal atrial fibrillation) Priority: Secondary Status: Chronic (4) HTN (hypertension) Priority: Secondary Status: Acute Qualifiers: Hypertension type: essential hypertension Qualified Code(s): I10 - Essential (primary) hypertension (5) DJD (degenerative joint disease) Priority: Secondary Status: Chronic Qualifiers: Osteoarthritis location: multiple joints Qualified Code(s): M15.0 - Primary generalized (osteo)arthritis Hospital course: Mr. Camarillo is a 72 year old male. We admitted this patient with overwhelming weakness. It him suddenly on the day preceding this admission. Subsequently, he spends a lot of time sleeping. He has severe coronary artery disease. He blamed that disease for his weakness. EKG, telemetry and cardiac enzymes were normal. His last echocardiogram was done in November of this year. It did not show any significant findings. His last stress test (pharmacologic) was done in 2014 showed pretty big area of old infarction; did not show any areas suspected of ischemia. He returned to his baseline by the time of discharge. CONDITION AT DISCHARGE: He feels his normal self. His weakness subsided. Denies chest pain. Denies difficulty breathingresting and at slow-paced walking. Skin: Free of rash and discoloration. Respiratory: Normal breath sounds with no crackles and wheezes bilaterally. CV: Heart is regular with no gallop or murmur. GI: Abdomen is flat and soft with no palpable mass or visceromegaly. Neuro exam: There is no focal deficits. Normal speech, swallowing and gait. SEE DISCHARGE ORDERS/MEDICATIONS.. - Time Spent with Patient Total time spent providing and/or coordinating discharge services: Greater than 30 minutes (45 minutes..) - Discharge Medications Prescriptions: Tramadol HCl [Ultram] 50 mg PO Q6HR PRN 10 Days #20 tab PRN Reason: Pain Home Medications: Aspirin 81 mg PO DAILY 09/29/15 [History] Atorvastatin Calcium [Lipitor] 20 mg PO BID 09/29/15 [History] Dutasteride [Avodart] 0.5 mg PO DAILY 09/29/15 [History] Fenofibrate [Lofibra] 160 mg PO DAILY 09/29/15 [History] Metoprolol [Lopressor] 25 mg PO BID 09/29/15 [History] [place] Oil/[place]-3 Fatty Acids [Fish Oil 500 mg Softgel] 1 each PO DAILY [History] Tamsulosin [Flomax] 0.4 mg PO HS 09/29/15 [History] Acetaminophen [Tylenol] 650 mg PO BID 11/27/16 [History] Apixaban [Eliquis] 5 mg PO BID 11/27/16 [History] Multivitamin,Therapeutic [Thera-Tabs] 1 tab PO DAILY 11/27/16 [History] Losartan/Hydrochlorothiazide [Losartan-Hctz 50-12.5 mg Tab] 1 tab PO DAILY 05/15 [History] Tizanidine HCl 2 mg PO QPM 05/15/18 [History] Tramadol HCl [Ultram] 50 mg PO Q6HR PRN 10 Days #20 tab 05/16/18 [Rx] Allergies/Adverse Reactions: 3 Allergy/AdvReac Type Severity Reaction Status Date / Time GORDO Inhibitors AdvReac Cough Verified 12/05/16 09:55 Date of admission: 05/15/18 13:43 Primary care physician: Lake Brooks MD Discharging clinician: Naveed Ferreira Anticipated date of discharge: 05/16/18 - Constitutional Vitals: Temp Pulse Resp BP Pulse Ox 97.6 F 64 14 132/73 96 05/16/18 06:39 05/16/18 06:39 05/16/18 06:39 05/16/18 06:39 05/16/18 06:39 General appearance: Present: A&O X 3, no acute distress, answers questions appropriately - Patient Status Disposition: Home, Self-Care Condition: Fair Functional capacity at discharge: independent ambulation Overall status at discharge: patient is back to baseline - Discharge Instructions Follow Up With: Lake Brooks MD [Primary Care Provider] - - Diet and Activity Activity: resume usual activities as tolerated Diet: low fat, low cholesterol - VTE Reasons for not Prescribing Prophylaxis: Treatment not Indicated - Low risk for VTE Deep Vein Thrombosis/Pulmonary Embolism Present on Admission: No
[2018-05-16 11:20] VITALS: BP 137/74
--- NOTE | 2018-05-16 15:52 | Electrocardiograph Report ---
[facility] Test Date: 2018-05-15 Pat Name: Jeremy Camarillo Department: Room: 3A41 Gender: M Registration Clerk: : 1945 Requested By: Greg Lee Order Number: [id number] Reading MD: Mati Mckenzie Measurements Intervals [place] Rate: 63 P: 42 NH: 137 QRS: 6 QRSD: 134 T: 1 QT: 437 QTc: 448 Interpretive Statements Sinus rhythm Atrial premature complex Right bundle branch block Inferior infarct, old Electronically Signed On 05-16-2018 15:50:57 EDT by Mati Mckenzie
== END 2018-05-16 11:40 | disposition home or self-care (01) ==
LOC: EMEROOARM 11:37 → 3ANU 11:37 → SUATTDRO 13:43 → 3ANU 14:14
PROVIDERS: ADMIT Internal Medicine; ATTEND Internal Medicine

== ENCOUNTER 2018-12-09 20:39 | Inpatient (IN) ==
[2018-12-10] MEDS ORDERED: *HR* Dextrose 50 % in Water (Syg) 50 ML SYRINGE IVP PRN (00:29)
[2018-12-10] MEDS ORDERED: Ondansetron 4 MG/2 ML VIAL IVP PRN (00:29)
[2018-12-10] MEDS ORDERED: Levalbuterol Neb 1.25 MG/3 ML IH PRN (00:29)
[2018-12-10] MEDS ORDERED: D5% in Water 1,000 ML IVC PRN (00:29)
[2018-12-10] MEDS ORDERED: Dextrose Gel 15 GM/37.5 ML TUBE PO PRN ×2 (00:29)
[2018-12-10] MEDS ORDERED: Naloxone 0.4 MG/ML INJ IVP PRN (00:29)
[2018-12-10] MEDS ORDERED: Acetaminophen 325 MG TABLET PO PRN (00:29)
[2018-12-10 00:40] LABS: BUN/Creatinine Ratio 20 (6-26); Blood Urea Nitrogen 17 mg/dL (8-23); Calcium 9.4 mg/dL (8.6-10.3); Carbon Dioxide 28 mEq/L (23-29); Chloride 99 mEq/L (98-107); Glucose 134 mg/dL (70-105); Osmolality,Calculated 288 (280-300); Potassium 3.5 mEq/L (3.5-5.1); Sodium 137 mEq/L (136-145); eGFR For Non-African Americans > 60 (> 60)
[2018-12-10] MEDS: 0.9 % Sodium Chloride 1,000 ML IVC SCH ×2 (03:02→10:35)
[2018-12-10 03:45] LABS: Influenza A PCR Negative (Negative); Influenza B PCR Negative (Negative); Resp. Syncytial Virus PCR Negative (Negative)
--- NOTE | 2018-12-10 05:33 | Internal Med History&Physical ---
Date of Encounter: 12/09/18 Time of Encounter: 23:20 Internal Medicine - H&P: HPI Chief complaint: weak; cough; fever Admitted From: Hospital to Hospital Transfer Plans for Post Hospital Care: Home History of present illness: Mr. Camarillo is a 73 year old male who [facility] with complaints of weakness, near-syncope, cough, fever, and lightheadedness. Symptoms started a few days ago where he nearly sustained a syncopal event at [facility] on Friday. He had been having some cough, congestion, fevers, and shortness of breath for several days prior. Over the weekend, sympt oms persisted and worsened. His family brought him to the ER today for evaluation. He was found to have clinical findings concerning for pneumonia despite negative chest x-ray. He was also found to have atrial fibrillation with rapid ventricular response. He was placed on Cardizem drip, received antibiotics, and transferred to [facility] after I accepted the patient transfer from Dr. Brar. Once he arrived to the floor, I saw him shortly after arrival. His and family were present and provided further history. They confirmed the above history as does the patient. Patient has had ill contacts. He's had no nausea, vomiting, diarrhea, body aches, or headaches however. He has had weakness, fatigue, cough, shortness breath, fever, lightheadness and dizzy spells as noted above. He denies any chest pain. At [place], there was concern that he was having episodes of tachycardia followed by bradycardia, causing concern for possible sick sinus syndrome. However, at the present time, he remains in atrial fibrillation with heart rates in the 90s to 100s. Past Med Surg Social Fam HX - Past Medical History Attestation: Yes The following information was validated with the patient. Source: patient, old records reviewed Medical history: cancer, COPD, coronary artery disease, hyperlipidemia, hypertension, myocardial infarction Additional medical history: 3 previous MIs Psychiatric history: no psych history - Past Surgical History Surgical History: angioplasty/stent, coronary bypass (CABG), vascular surgery Additional surgical history: skin ca removal (nose, face) - Social History Smoking Status: Former smoker Smokeless Tobacco Status: No ("dip") Alcohol use: none Drug use: none Current living situation: Home, With Family Activity Level: Independent ambulation Recent Out of Country Travel Within the Last 8 Weeks: No - Family History Mother Hx Family Cardiac Disorders: Yes ([place]) Father Hx Family Respiratory Disorders: Yes (lung ca) Internal Medicine - H&P: Meds Aspirin 81 mg PO DAILY 09/29/15 [History] Atorvastatin Calcium [Lipitor] 40 mg PO BID 09/29/15 [History] Dutasteride [Avodart] 0.5 mg PO DAILY 09/29/15 [History] Fenofibrate [Lofibra] 160 mg PO DAILY 09/29/15 [History] Metoprolol [Lopressor] 25 mg PO BID 09/29/15 [History] Normal Oil/[place]-3 Fatty Acids [Fish Oil 500 mg Softgel] 1 each PO DAILY 09/29/15 [History] Tamsulosin [Flomax] 0.4 mg PO HS 09/29/15 [History] Apixaban [Eliquis] 5 mg PO BID 11/27/16 [History] Multivitamin,Therapeutic [Thera-Tabs] 1 tab PO DAILY 11/27/16 [History] Losartan/HCTZ [Hyzaar 50-12.5 Tablet] 1 each PO DAILY 07/13/18 [History] metFORMIN [Glucophage] 500 mg PO BIDWM 12/09/18 [History] Allergy/AdvReac Type Severity Reaction Status Date / Time GORDO Inhibitors AdvReac Cough Verified 12/05/16 09:55 - Constitutional Constitutional: chills, fatigue, fever(s), weakness, no night sweats, no weight gain - EENT Eyes: no blurry vision, no change in vision Ears: no ear pain, no tinnitus Nose, mouth and throat: no nasal congestion, no sinus pressure, no sore throat - Cardiovascular Cardiovascular ROS IM: dyspnea, dyspnea on exertion, irregular heart rhythm, lightheadedness, no chest pain, no orthopnea, no paroxysmal nocturnal dyspnea, no syncope - Respiratory Respiratory: cough, dyspnea, chest congestion, change in phlegm color, no hemoptysis, no excessive phlegm production - Gastrointestinal Gastrointestinal: nausea, no abdominal pain, no diarrhea, no hematemesis, no hematochezia, no melena, no vomiting - Genitourinary Genitourinary ROS male: no dysuria, no flank pain, no hematuria - Musculoskeletal Musculoskeletal ROS IM: myalgias, no arthralgias, no back pain - Integumentary Integumentary IM: no rash, no jaundice - Neurological Neurological ROS: dizziness, no convulsions, no disequilibrium, no focal weakness, no frequent falls, no headache(s) - Psychiatric Psychiatric: no anxiety, no depression - Endocrine Endocrine IM: no cold intolerance, no heat intolerance, no polydipsia, no polyphagia, no polyuria - Allergic/Immunologic Allergic/Immunologic: no GI upset with certain foods - Constitutional Vitals: Temp Pulse Resp BP Pulse Ox 98.4 F 91 16 136/80 91 12/10/18 04:07 12/10/18 04:07 12/10/18 04:07 12/10/18 04:07 12/10/18 04:07 General appearance: Present: cooperative, mild distress, A&O X 3, pleasant, answers questions appropriately Exam: ill-appearing, non-toxic; weak; coughing; SOB - Head Head exam: Present: atraumatic, normal inspection - Eye Eye exam: Present: EOMI, PERRL. Absent: scleral icterus Pupils: Present: normal accommodation - ENT ENT exam: Present: mucous membranes dry, normal exam, normal oropharynx - Neck Neck exam general surgery: Present: full ROM, supple, trachea midline. Absent: tenderness, nuchal rigidity, thyromegaly - Respiratory Respiratory exam: Present: rales (left base), respiratory distress (mild), rhonchi. Absent: chest wall tenderness, stridor, wheezes - Cardiovascular Cardiovascular exam: Present: irregular rhythm, +S1, +S2, tachycardia (HR 100's). Absent: diastolic murmur, systolic murmur - GI/Abdominal GI/Abdominal exam: Present: soft. Absent: guarding, hepatomegaly, mass, rebound, splenomegaly, tenderness - Extremities Exam Extremities exam: Present: full ROM, normal capillary refill, warm, radial pulses palpable and symmetrical. Absent: calf tenderness, pedal edema, tend erness - Back Exam Back exam: Absent: CVA tenderness (L), CVA tenderness (R) - Neurological Exam Neurological exam: Present: alert, CN II-XII intact, oriented X3, no focal deficits, strengths equal and symetr throughout - Psychiatric Psychiatric exam: Present: normal affect, normal mood - Skin Skin exam: Present: dry, intact, warm Internal Med - H&P Results - Labs CBC & Chem 7: 12/10/18 00:11 Labs: BMP 12/10/18 00:11 Sodium 137 Potassium 3.5 D Chloride 99 Carbon Dioxide 28 BUN 17 Creatinine 0.85 Glucose 134 H Calcium 9.4 Cardiac Enzymes 12/10/18 Range/Units 00:11 Troponin I < 0.03 (< 0.04) ng/mL I reviewed the labs from [place] and they include the following: WBC 12.3 Hemoglobin 13.9 Hematocrit 40.4 Platelets 414 PTT 22.3 INR 2.0 PTT 41.0 Sodium 131 Potassium 5.8 Chloride 99 CO2 26 BUN 17 Creatinine 0.97 Troponin less than 0.03 - EKG Data -: EKG Interpreted by Myself - EKG Data Prior EKG available for review: no EKG comments: 12/10/18 05:55 Atrial fibrillation w RVR - Diagnostic Studies Chest x-ray Status: image reviewed by me (negative) - Assessment and Plan (1) Atrial fibrillation with RVR Current Visit: Yes Status: Acute Assessment and plan: 1. Will continue Cardizem drip per protocol. 2. Will trend troponin and monitor electrolytes. 3. Monitor on telemetry. 4. Given reports of tachycardia followed by bradycardia on BB at [place], consult cardiology for evaluation of possible SSS. 5. Continue Eliquis. (2) Pneumonia Current Visit: Yes Status: Suspected Assessment and plan: 1. Despite negative CXR, I agree with concern for pneumonia. 2. Blood cultures drawn at [place]. 3. Will order Influenza and RSV PCR. 4. Sputum culture ordered. 5. Continue IV antibiotics, aerosols PRN, and oxygen as needed. Qualifiers: Pneumonia type: due to unspecified organism Laterality: left Lung lo cation: lower lobe of lung Qualified Code(s): J18.1 - Lobar pneumonia, unspecified organism (3) CAD (coronary artery disease) Current Visit: Yes Status: Chronic Assessment and plan: 1. Will trend troponins and EKG's. 2. Recent ECHO reviewed -- last month. 3. Consult cardiology as above. Qualifiers: Coronary Disease-Associated Artery/Lesion type: rincon artery [place] vs. transplanted heart: rincon heart Associated angina: without angina Qualified Code(s): I25.10 - Atherosclerotic heart disease of rincon coronary artery without angina pectoris (4) History of aortic valve replacement Current Visit: Yes Status: Chronic Assessment and plan: 1. S/P TAVR. 2. Patient follows with cardiology. (5) DVT prophylaxis Current Visit: Yes Status: Acute Assessment and plan: 1. On Eliquis.
[2018-12-10 06:55] LABS: Basophils # 0.1 K/mcL (0.0-0.2); Basophils % 0.5 %; Eosinophils # 0.1 K/mcL (0.0-0.6); Eosinophils % 0.6 %; Hematocrit 36.7 % (37.5-50.1); Immature Granulocytes % 0.5 % (0-4); Lymphocytes # 1.4 K/mcL (0.6-4.6); Lymphocytes % 14.6 %; Mean Corpuscular HGB Conc 32.7 g/dL (31.6-35.5); Mean Corpuscular Hemoglobin 30.5 pg (28.0-33.3); Mean Corpuscular Volume 93.4 fL (83.0-100.0); Monocytes # 0.9 K/mcL (0.0-1.3); Monocytes % 9.1 %; Neutrophils # 7.1 K/mcL (1.6-8.9); Platelet Count 361 K/mcL (140-400); Red Blood Count 3.93 M/mcL (4.19-5.50); Red Cell Distribution Width 12.4 % (11.5-14.5); Segmented Neutrophils % 74.7 %
[2018-12-10 07:18] LABS: Troponin I < 0.03 ng/mL (< 0.04)
[2018-12-10 07:19] LABS: Alanine Aminotransferase 13 Units/L (7-52); Albumin 3.1 g/dL (3.5-5.7); Albumin/Globulin Ratio 1.1 (1.1-2.2); Alkaline Phosphatase 53 Units/L (34-104); Aspartate Amino Transferase 20 Units/L (13-39); BUN/Creatinine Ratio 19 (6-26); Bilirubin,Total 0.7 mg/dL (0.3-1.0); Blood Urea Nitrogen 15 mg/dL (8-23); Calcium 8.8 mg/dL (8.6-10.3); Carbon Dioxide 28 mEq/L (23-29); Chloride 100 mEq/L (98-107); Cholesterol 77 mg/dL (< 200); Globulin 2.9 g/dL (2.4-3.5); Glucose 150 mg/dL (70-105); HDL Cholesterol 26 mg/dL (40-59); LDL Cholesterol,Calculated 33 mg/dL (0-99); Osmolality,Calculated 284 (280-300); Potassium 3.6 mEq/L (3.5-5.1); Sodium 135 mEq/L (136-145); Triglycerides 92 mg/dL (< 150); eGFR For Non-African Americans > 60 (> 60)
[2018-12-10] MEDS: Insulin LISPRO 300 UNITS/3 ML VIAL SQ SCH ×3 (08:17→17:42)
[2018-12-10] MEDS: cefTRIAXone 2,000 MG in Water for inj. (sterile) 20 ML 20 ML IVP SCH (08:25)
[2018-12-10] MEDS: Apixaban 5 MG TABLET PO SCH ×2 (08:25→20:50)
--- NOTE | 2018-12-10 10:09 | Cardiology Consult Note ---
<Alvarez Mayer - Last Filed: 12/10/18 12:01> Date of Encounter: 12/10/18 Time of Encounter: 10:10 Assessment and Plan (1) Atrial fibrillation with RVR Current Visit: Yes Status: Acute Per Cardiology: Known history of atrial fibrillation. On Lopressor 25 g by mouth twice a day at home. ECG showed A. fib with RVR in the 100s. On IV Cardizem drip at 10 mg per hour, will attempt weaning off, current heart rate in the 80s, afib. Telemetry reviewed with average heart rate the past 12 hours 93, no significant pauses or events. We will resume home dose of beta matt for now. Titrate as needed. Suspect A. fib rate driven by underlying infectious process-- on antibiotics per primary service. Regarding long-term anticoagulation, remains on home dose of Eliquis 5mg PO BID. H&H stable, denies any active bleeding or blood loss. (2) CAD (coronary artery disease) Current Visit: Yes Status: Chronic Per Cardiology: Known history of CAD with previous angioplasty and CABG 3 2005. Chest pain- free. Troponins negative. Echo showed preserved EF. We will resume home aspirin, statin, beta matt. Consider resuming home ARB. Qualifiers: Coronary Disease-Associated Artery/Lesion type: sioux artery [place] vs. transplanted heart: sioux heart Associated angina: without angina Qualified Code(s): I25.10 - Atherosclerotic heart disease of sioux coronary artery without angina pectoris (3) History of aortic valve replacement Current Visit: Yes Status: Chronic Per Cardiology: Hx of TAVR 09/2016 at [facility] ECHO: Impressions: Technically sub-optimal due to poor echocardiographic windows. LVEF 50-55%. Mildly dilated left ventricle. Mild segmental left ventricular systolic dysfunction. Atypical septal motion consistent with post-operative status. Indeterminate diastolic function. Normal right ventricular structure and function. Bioprosthetic aortic valve appears well seated. Leaflets were not well visualized. Normal function by Doppler. No evidence of pulmonary hypertension. Left Ventricular Wall Motion: Rest Echo Findings The mid inferior and basal inferior pearson were hypokinetic. All other wall segments showed normal motion. Discussion w patient/family: The assessment and plan as outlined above was discussed with the patient and/or family members who expressed understanding and agreement. All questions were answered. Thank you for involving us in the care of your patient. Please call with any questions. History of Present Illness Consult date: 12/10/18 Requesting physician: Alberto Valero Consult reason: Afib Chief complaint: Fatigue History of present illness: Mr. Camarillo is a 73 year old male with a relevant past medical history of CAD with PA in 1998 with history of angioplasty and CABG 3 in 2005, TAVR September 2016-- #29 [employer] evolute prosthetic valve, history of PAD with right femoral artery stenting and atherectomy, HTN, HLD, COPD, past history of nicotine abuse. Last seen by Dr. Coulter with cardiology September 2018. Cardiology consult for A. fib with RVR. Patient seen with family at bedside. Reports gradual decreased energy levels with "weakness" over the past one to 2 weeks. indicates increased short of breath at rest and dyspnea on exertion from baseline. He reports intermittent chills, however denies fever. Reports cough productive of yellow gayle sputum. Denies any nausea, vomiting, diarrhea. Denies any active bleeding or blood lo ss. Does report weakness with ambulation, however unchanged from baseline. He denies any recent falls. Denies any palpitations. Denies any chest pain symptoms. reports LHC at [facility] in 2017 "his bypass grafts looked great ". Patient reports history of blood clot after his aortic valve procedure and was on antegrade regulation of Eliquis; he reports was discontinued, however resumed by cardiology with development of irregular heartbeat. Per review of records and appears patient found to be in A. fib March 2018. Past Med Surg Social Fam HX - Past Medical History Attestation: Yes The following information was validated with the patient. Source: patient, old records reviewed Medical history: cancer, COPD, coronary artery disease, hyperlipidemia, hypertension, myocardial infarction Additional medical history: 3 previous MIs Psychiatric history: no psych history - Past Surgical History Surgical History: angioplasty/stent, coronary bypass (CABG), vascular surgery Additional surgical history: skin ca removal (nose, face) - Social History Smoking Status: Former smoker Smokeless Tobacco Status: No ("dip") Alcohol use: none Drug use: none - Family History Mother Hx Family Cardiac Disorders: Yes ([place]) Father Hx Family Respiratory Disorders: Yes (lung ca) Medications and Allergies Aspirin 81 mg PO DAILY 09/29/15 [History] Atorvastatin Calcium [Lipitor] 40 mg PO BID 09/29/15 [History] Dutasteride [Avodart] 0.5 mg PO DAILY 09/29/15 [History] Fenofibrate [Lofibra] 160 mg PO DAILY 09/29/15 [History] Metoprolol [Lopressor] 25 mg PO BID 09/29/15 [History] [place] Oil/[place]-3 Fatty Acids [Fish Oil 500 mg Softgel] 1 each PO DAILY 09/29/15 [History] Tamsulosin [Flomax] 0.4 mg PO HS 09/29/15 [History] Apixaban [Eliquis] 5 mg PO BID 11/27/16 [History] Multivitamin,Therapeutic [Thera-Tabs] 1 tab PO DAILY 11/27/16 [History] Losartan/HCTZ [Hyzaar 50-12.5 Tablet] 1 each PO DAILY 07/13/18 [History] metFORMIN [Glucophage] 500 mg PO BIDWM 12/09/18 [History] Allergy/AdvReac Type Severity Reaction Status Date / Time GORDO Inhibitors AdvReac Cough Verified 12/05/16 09:55 All Systems Review: The remainder of the systems were reviewed and are negative - Constitutional Constitutional: fatigue, weakness - Cardiovascular Cardiovascular: as per HPI, dyspnea at rest, dyspnea on exertion - Respiratory Respiratory: cough, dyspnea Physical Examination Vital Signs, Last 4 Hours Temp Pulse Resp BP Pulse Ox 12/10/18 07:25 98.5 F 89 17 121/64 91 General: Conversant, No Apparent Distress HEENT: Atraumatic, Normocephaly, Mucus Membranes Moist Neck: No JVD, Normal carotid pulses Cardiac: Reg Rate and Rhythm, Normal S1 and S2, No Murmur Lungs: Normal Breath Sounds, No Wheeze, Rales, Rhonchi Neuro: Alert and responsive, No focal deficits noted Abdomen: Soft, Non-Tender Skin: No rashes noted on visualized skin Musculoskeletal: No Chest Wall Tenderness Extremities: No Clubbing, No Cyanosis, No Edema, Normal Pulses Results 12/10/18 06:11 12/10/18 06:11 Lab Results Laboratory Tests 12/09/18 12/09/18 12/10/18 19:00 19:00 00:11 WBC Hgb Hct INR 2.0 Potassium 5.8 H 3.5 D Creatinine 0.85 Est GFR (Non-Af Amer) > 60 Troponin I < 0.03 12/10/18 12/10/18 12/10/18 00:11 06:11 06:11 WBC 9.5 Hgb 12.0 L D Hct 36.7 L INR Potassium 3.6 Creatinine Est GFR (Non-Af Amer) Troponin I < 0.03 < 0.03 CXR: IMPRESSION: No acute process. Active Medications Acetaminophen (Tylenol) 650 mg PO Q6HR PRN PRN Reason: Mild Pain/Fever Stop: 06/11/19 00:30 Apixaban (Eliquis) 5 mg PO BID JERALD Stop: 06/11/19 09:01 Last Admin: 12/10/18 08:25 Dose: 5 mg Dextrose/Water (Dextrose 50% (Syg)) 25 ml IVP AD PRN PRN Reason: Hypoglycemia Stop: 06/11/19 00:30 Glucagon (Glucagen) 1 mg IM ONCE PRN PRN Reason: Hypoglycemia Stop: 06/11/19 00:30 Glucose (Gluctose) 15 gm PO ONCE PRN PRN Reason: Hypoglycemia Stop: 06/11/19 00:30 Glucose (Gluctose) 30 gm PO ONCE PRN PRN Reason: Hypoglycemia Stop: 06/11/19 00:30 Sodium Chloride (0.9 % Sodium Chloride) 1,000 mls @ 100 mls/hr IVC .Q10H [facility] Stop: 12/10/18 20:29 Last Admin: 12/10/18 10:35 Dose: Not Given Azithromycin 250 mg/ Dextrose 250 mls @ 252 mls/hr IVPB Q24H JERALD Stop: 06/11/19 09:01 Last Admin: 12/10/18 10:36 Dose: 252 mls/hr Ceftriaxone Sodium 2,000 mg/ (Sterile Water) 20 mls @ 600 mls/hr IVP Q24H JERALD Stop: 06/11/19 09:01 Last Admin: 12/10/18 08:25 Dose: 600 mls/hr Dextrose (Dextrose 5%) 1,000 mls @ 100 mls/hr IVC .Q10H PRN PRN Reason: HYPOGLYCEMIA Stop: 06/11/19 00:30 Diltiazem HCl 50 mg/ Sodium (Chloride) 50 mls @ 5 mls/hr IVC .Q10H JERALD; Prot ocol Stop: 06/11/19 00:31 Last Admin: 12/10/18 08:25 Dose: 10 mg/hr, 10 mls/hr Insulin Human Lispro (Humalog) 0 units SQ TIDAC [facility]; Protocol Stop: 06/11/19 07:31 Last Admin: 12/10/18 08:17 Dose: Not Given Levalbuterol HCl (Xopenex) 1.25 mg IH [id number] PRN PRN Reason: Wheezing Stop: 06/11/19 00:46 Metoprolol Tartrate (Lopressor) 25 mg PO BID JERALD Stop: 06/11/19 12:01 Naloxone HCl (Narcan) 0.4 mg IVP Q2M PRN PRN Reason: SEE COMMENTS Stop: 06/11/19 00:30 Ondansetron HCl (Zofran) 4 mg IVP Q8HR PRN PRN Reason: Nausea And Vomiting Stop: 06/11/19 00:30 - Imaging and Cardiology Echo: report reviewed - EKG Interpretation EKG results cardiology: personally reviewed (Atrial fibrillation in the low 100s) Consult Discharge Plan - Plan Referrals: Lizbeth Espinal CNP [Advanced Practice Nurse] - 12/18/18 10:35 am <Camelia Wade - Last Filed: 12/10/18 17:13> Date of Encounter: 12/10/18 - Attending Attestation I examined this patient and my medical decision-making was reviewed with the RESIDENTIAL MENTAL HEALTH WORKER. I agree with the documented findings, disposition and treatment plan as described. Assessment and Plan Discussion w patient/family: The assessment and plan as outlined above was discussed with the patient and/or family members who expressed understanding and agreement. All questions were answered. Thank you for involving us in the care of your patient. Please call with any questions. History of Present Illness History of present illness: Mr. Camarillo is a 73 year old male All Systems Review: The remainder of the systems were reviewed and are negative Physical Examination Vital Signs, Last 4 Hours Pulse BP Pulse Ox 12/10/18 15:06 85 134/75 93 12/10/18 14:42 83 134/77 92 12/10/18 14:15 75 127/72 92 12/10/18 13:45 84 138/72 92 Results 12/10/18 06:11 12/10/18 06:11 Lab Results 12/10/18 12/10/18 12/10/18 00:11 00:11 06:11 WBC 9.5 Hgb 12.0 L D Hct 36.7 L Plt Count 361 Sodium 137 Potassium 3.5 D Chloride 99 Carbon Dioxide 28 BUN 17 Creatinine 0.85 Glucose 134 H Calcium 9.4 Magnesium 2.0 Total Bilirubin AST ALT Alkaline Phosphatase Troponin I < 0.03 12/10/18 12/10/18 06:11 12:48 WBC Hgb Hct Plt Count Sodium 135 L Potassium 3.6 Chloride 100 Carbon Dioxide 28 BUN 15 Creatinine 0.80 Glucose 150 H Calcium 8.8 Magnesium 2.0 Total Bilirubin 0.7 AST 20 ALT 13 Alkaline Phosphatase 53 Troponin I < 0.03 < 0.03
--- NOTE | 2018-12-10 10:15 | Electrocardiograph Report ---
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
[2018-12-10] MEDS: Azithromycin 250 MG in D5% in Water 250 ML IVPB SCH (10:36)
[2018-12-10] MEDS: Aspirin Enteric Coated 81 MG Tablet PO SCH (12:40)
--- NOTE | 2018-12-10 13:42 | Internal Med Progress Note ---
Hospitalist Progress Note - Encounter Date of Encounter: 12/10/18 Time of Encounter: 13:42 - Subjective Interval History: Patient was seen and examined at bedside, denies palpitations or shortness of breath I did discuss treating plan with the patient who verbalized understanding. - Exam Vitals: Temp Pulse Resp BP Pulse Ox 98.1 F 93 17 119/73 92 12/10/18 11:24 12/10/18 11:24 12/10/18 11:24 12/10/18 11:24 12/10/18 11:24 Exam: Skin: Free of rash and discoloration. Eyes: Sclera is white. There is no discharge from eyes. ENMT: Oral/pharyngeal mucosa is normal in appearance. There is no discharge from nose or ears. Respiratory: Normal breath sounds with no crackles and wheezes bilaterally. CV: Heart is irregular with no gallop or murmur. GI: Abdomen is flat and soft with no palpable mass or visceromegaly. : There is no tenderness in patient's flanks bilaterally. Neuro exam: He has good strength in upper and lower extremities. He has normal eye movements. Psychiatric: He has normal affect. His thought process is appropriate to the situation. - Assessment and Plan (1) CAD (coronary artery disease) Current Visit: Yes Status: Chronic Assessment and Plan: 1. Troponins negative times. 2. Recent ECHO 11/11/2018 Impressions: Technically sub-optimal due to poor echocardiographic windows. LVEF 50-55%. Mildly dilated left ventricle. Mild segmental left ventricular systolic dysfunction. Atypical septal motion consistent with post-operative status. Indeterminate diastolic function. Normal right ventricular structure and function. Bioprosthetic aortic valve appears well seated. Leaflets were not well visualized. Normal function by Doppler. No evidence of pulmonary hypertension. 3. Consult cardiology as above. 4. Aspirin and statin beta matt (2) History of aortic valve replacement Current Visit: Yes Status: Chronic Assessment and Plan: 1. S/P TAVR. 2. Patient follows with cardiology. (3) Atrial fibrillation with RVR Current Visit: Yes Status: Acute Assessment and Plan: 1. Wean Cardizem to off placed on metoprolol per radiology 2. Troponins are negative 3 3. Monitor on telemetry. 4. Cardiology consult 5. Continue Eliquis. (4) Pneumonia Current Visit: Yes Status: Suspected Assessment and Plan: 1. Chest x-ray negative concerned for pneumonia 2. Blood cultures drawn at [place]. Pending results 3. Negative Influenza and RSV PCR. 4. Sputum culture ordered. 5. Continue IV antibiotics, aerosols PRN, and oxygen as needed. (5) DVT prophylaxis Current Visit: Yes Status: Acute Assessment and Plan: 1. On Eliquis. - Time Spent with Patient Total time spent is greater than 50% in coordination of care (as documented) at patient's floor/unit and/or counseling patient: Internal Medicine: Result - Labs CBC & Chem 7: 12/10/18 06:11 12/10/18 06:11 Labs: Short CBC 12/10/18 Range/Units 06:11 WBC 9.5 (4.3-11.1) K/mcL Hgb 12.0 L D (12.9-16.9) g/dL Hct 36.7 L (37.5-50.1) % Plt Count 361 (140-400) K/mcL Neutrophils # 7.1 (1.6-8.9) K/mcL BMP 12/10/18 12/10/18 00:11 06:11 Sodium 137 135 L Potassium 3.5 D 3.6 Chloride 99 100 Carbon Dioxide 28 28 BUN 17 15 Creatinine 0.85 0.80 Glucose 134 H 150 H Calcium 9.4 8.8 Cardiac Enzymes 12/10/18 12/10/18 12/10/18 Range/Units 00:11 06:11 12:48 Troponin I < 0.03 < 0.03 < 0.03 (< 0.04) ng/mL Liver Function 12/10/18 Range/Units 06:11 Total Bilirubin 0.7 (0.3-1.0) mg/dL AST 20 (13-39) Units/L ALT 13 (7-52) Units/L Alkaline Phosphatase 53 (34-104) Units/L Albumin 3.1 L (3.5-5.7) g/dL Consult Discharge Plan - Plan Referrals: Lizbeth Espinal, LEATHER LACER [Advanced Practice Nurse] - 12/18/18 10:35 am (1) CAD (coronary artery disease) Qualifiers: Coronary Disease-Associated Artery/Lesion type: [place] artery [place] vs. transplanted heart: [place] heart Associated angina: without angina Qualified Code(s): I25.10 - Atherosclerotic heart disease of [place] coronary artery without angina pectoris (4) Pneumonia Qualifiers: Pneumonia type: due to unspecified organism Laterality: left Lung location: lower lobe of lung Qualified Code(s): J18.1 - Lobar pneumonia, unspecified organism
--- NOTE | 2018-12-10 16:07 | Event Note ---
Date of Encounter: 12/10/18 Time of Encounter: 16:00 - Cardiology Event Note Cardizem drip now off. Remains A. fib in the 80s. Titrate beta matt as needed. Cardiology signing off, follow-up arranged, reconsult as needed. All questions answered.
[2018-12-11 06:29] LABS: Basophils % 0.3 %; Eosinophils # 0.1 K/mcL (0.0-0.6); Eosinophils % 0.9 %; Hemoglobin 12.3 g/dL (12.9-16.9); Immature Granulocytes % 0.2 % (0-4); Lymphocytes # 1.3 K/mcL (0.6-4.6); Lymphocytes % 14.3 %; Mean Corpuscular HGB Conc 33.2 g/dL (31.6-35.5); Mean Corpuscular Hemoglobin 30.4 pg (28.0-33.3); Mean Corpuscular Volume 91.4 fL (83.0-100.0); Monocytes # 0.6 K/mcL (0.0-1.3); Monocytes % 6.9 %; Neutrophils # 6.8 K/mcL (1.6-8.9); Platelet Count 344 K/mcL (140-400); Red Blood Count 4.05 M/mcL (4.19-5.50); Red Cell Distribution Width 12.3 % (11.5-14.5); Segmented Neutrophils % 77.4 %
[2018-12-11 07:13] LABS: BUN/Creatinine Ratio 19 (6-26); Blood Urea Nitrogen 13 mg/dL (8-23); Calcium 8.6 mg/dL (8.6-10.3); Carbon Dioxide 25 mEq/L (23-29); Chloride 103 mEq/L (98-107); Glucose 140 mg/dL (70-105); Osmolality,Calculated 288 (280-300); Potassium 3.4 mEq/L (3.5-5.1); Sodium 138 mEq/L (136-145); eGFR For Non-African Americans > 60 (> 60)
[2018-12-11] MEDS: Insulin LISPRO 300 UNITS/3 ML VIAL SQ SCH ×2 (07:41→12:25)
[2018-12-11] MEDS: cefTRIAXone 2,000 MG in Water for inj. (sterile) 20 ML 20 ML IVP SCH (08:19)
[2018-12-11] MEDS: Apixaban 5 MG TABLET PO SCH (08:19)
[2018-12-11] MEDS: Azithromycin 250 MG in D5% in Water 250 ML IVPB SCH (08:19)
[2018-12-11] MEDS: Aspirin Enteric Coated 81 MG Tablet PO SCH (08:19)
[2018-12-11 11:31] VITALS: BP 145/66
--- NOTE | 2018-12-11 12:18 | Discharge Summary ---
- NOTES TO OUTPATIENT PROVIDER Notes to Outpatient Provider: -Presented in A. otf RVR-was placed on Cardizem drip weaned off continue with anticoagulation and beta matt for rate control. -Treated for pneumonia continue with azithromycin Orders not resulted at time of discharge: Pending orders 12/10/18 00:29 Culture,Sputum with Gram Stain [RM] Stat 12/10/18 06:00 ECG 12 lead ECG [ECG] AM 0600 Date of Encounter: 12/11/18 Time of Encounter: 12:14 - Discharge Diagnosis (1) CAD (coronary artery disease) Priority: Secondary Status: Chronic Qualifiers: Coronary Disease-Associated Artery/Lesion type: [place] artery [place] vs. transplanted heart: [place] heart Associated angina: without angina Qualified Code(s): I25.10 - Atherosclerotic heart disease of [place] coronary artery without angina pectoris (2) History of aortic valve replacement Priority: Secondary Status: Chronic (3) Atrial fibrillation with RVR Priority: Primary Status: Acute (4) Pneumonia Priority: Primary Status: Suspected Qualifiers: Pneumonia type: due to unspecified organism Laterality: left Lung location: lower lobe of lung Qualified Code(s): J18.1 - Lobar pneumonia, unspecified organism Hospital course: Mr. Camarillo is a 73 year old male past medical history of CAD with GA in 1998 history of angioplasty and CABG 3 in 2005 TAVR September 2016 history of PAD with right femoral artery stenting and atherectomy hypertension hyperlipidemia COPD past history of nicotine use added to [facility] with complaints of gradual weakness over the past 2 weeks shortness of breath dyspnea on exertion from baseline intermittent chills but no fever and cough with productive yellow-gayle sputum denies any nausea vomiting diarrhea he was in atrial fibrillation RVR cardiology was consulted and patient was started on a Cardizem drip and transitioned to metoprolol cont with Eliquis -treated for pneumonia given Rocephin and azithromycin was requiring oxygen however has improved and examined along was completed patient did not qualify for and tenuous oxygen. Advised patient follow-up with cardiology as well as with primary care provider-patient will be sent home with prescriptions azithromycin he is hemodynamically stable and ready for discharge. - Time Spent with Patient Total time spent providing and/or coordinating discharge services: - Discharge Medications Prescriptions: New Azithromycin [Zithromax] 250 mg PO DAILY #4 tablet Continue Apixaban [Eliquis] 5 mg PO BID Aspirin [Lo-Dose Aspirin EC] 81 mg PO DAILY Atorvastatin [Lipitor] 40 mg PO DAILY Fenofibrate Nanocrystallized [Fenofibrate] 160 mg PO DAILY Metoprolol [Lopressor] 25 mg PO BID Multivitamin [One Daily Essential] 1 tab PO DAILY [place]-3/Dha/Epa/Fish Oil [Fish Oil 1,000 mg Softgel] 1 cap PO DAILY Tamsulosin [Flomax] 0.4 mg PO DAILY Dutasteride [Avodart] 0.5 mg PO DAILY metFORMIN [Glucophage] 500 mg PO BIDWM No Action Clopidogrel [Plavix] 75 mg PO DAILY Valsartan/Hydrochlorothiazide [Diovan Hct 80-12.5 mg Tablet] 1 tab PO DAILY Home Medications: Dutasteride [Avodart] 0.5 mg PO DAILY 09/29/15 [History] Tamsulosin [Flomax] 0.4 mg PO DAILY 09/29/15 [History] Apixaban [Eliquis] 5 mg PO BID 11/27/16 [History] metFORMIN [Glucophage] 500 mg PO BIDWM 12/09/18 [History] Aspirin [Lo-Dose Aspirin EC] 81 mg PO DAILY 12/10/18 [History] Atorvastatin [Lipitor] 40 mg PO DAILY 12/10/18 [History] Clopidogrel [Plavix] 75 mg PO DAILY 12/10/18 [History] Fenofibrate Nanocrystallized [Fenofibrate] 160 mg PO DAILY 12/10/18 [History] Metoprolol [Lopressor] 25 mg PO BID 12/10/18 [History] Multivitamin [One Daily Essential] 1 tab PO DAILY 12/10/18 [History] [place]-3/Dha/Epa/Fish Oil [Fish Oil 1,000 mg Softgel] 1 cap PO DAILY 12/10/18 [History] Valsartan/Hydrochlorothiazide [Diovan Hct 80-12.5 mg Tablet] 1 tab PO DAILY 12/10/18 [History] Azithromycin [Zithromax] 250 mg PO DAILY #4 tablet 12/11/18 [Rx] Allergies/Adverse Reactions: Allergy/AdvReac Type Severity Reaction Status Date / Time GORDO Inhibitors AdvReac Cough Verified 12/05/16 09:55 Date of admission: 12/10/18 00:29 Primary care physician: PCP NONE Consults: 12/10/18 05:37 Consult to Cardiology [CONS] Routine Comment: Consulting Provider: Cardiology Melani Reason for Consult: atrial fib RVR w runs of bradycardia Call Completed: No 12/10/18 08:51 Consult to Nurse Navigator [CONS] Routine Comment: PNEUMONIA Discharging clinician: Deloris Corcoran Anticipated date of discharge: 12/11/18 - Constitutional Vitals: Temp Pulse Resp BP Pulse Ox 97.8 F 90 16 145/66 94 12/11/18 11:24 12/11/18 11:24 12/11/18 11:24 12/11/18 11:24 12/11/18 11:50 General appearance: Present: cooperative, mild distress, A&O X 3, pleasant, answers questions appropriately Exam: . - Head Head exam: Present: atraumatic, normocephalic - Eye Eye exam: Present: PERRL, conjuntiva pink, sclera anicteric Pupils: Present: PERRL - Neck Neck exam general surgery: Present: supple, trachea midline. Absent: lymphadeno julissa - Respiratory Respiratory exam: Present: CTAB. Absent: accessory muscle use, rales, rhonchi, wheezes - Cardiovascular Cardiovascular exam: Present: RRR, +S1, +S2. Absent: diastolic murmur, gallop, rubs, systolic murmur - GI/Abdominal GI/Abdominal exam: Present: normal bowel sounds, soft, no peritoneal signs. Absent: distended, tenderness - Extremities Exam Extremities exam: Present: warm, radial pulses palpable and symmetrical. Ab sent: calf tenderness, cyanotic, pedal edema - Neurological Exam Neurological exam: Present: CN II-XII intact, oriented X3, no focal deficits. Absent: pronater drift, facial droop, speech deficit - Skin Skin exam: Present: dry, intact - Patient Status Disposition: Home, Self-Care Condition: Good Functional capacity at discharge: independent ambulation Overall status at discharge: patient is back to baseline - Discharge Instructions Instructions: Atrial Fibrillation (DC) Follow Up With: Lizbeth Espinal CNP [Advanced Practice Nurse] - 12/18/18 10:35 am - Diet and Activity Activity: increase activity as tolerated Diet: advance to your usual diet
== END 2018-12-11 14:53 | disposition home or self-care (01) | DRG 308 ==
LOC: 3BNU
PROVIDERS: ADMIT Pediatrics; ATTEND Pediatrics

== ENCOUNTER 2018-12-15 10:00 | Inpatient (IN) ==
[2018-12-15] MEDS ORDERED: *HR* Metoprolol 5 MG/5 ML VIAL IVP ONE (10:35)
[2018-12-15] MEDS ORDERED: Aspirin 81 MG TAB.CHEW PO ONE (10:35)
--- NOTE | 2018-12-15 10:42 | Emergency Department Note ---
Disposition Clinical Impression: Ventricular tachycardia, Atrial fibrillation with RVR, Multifocal pneumonia Disposition: Admitted As Inpatient Condition: Good Forms: ED Satisfaction Letter Time of Disposition: 11:54 Arrhythmia/Palpitations HPI - General Chief Complaint: ED Arrhythmia/Palpitations Stated Complaint: A-Fib RVR Dr. Todd Maher Time Seen by Provider: 12/15/18 10:36 Source: patient Mode of arrival: private vehicle Limitations: no limitations Nursing Notes Reviewed: Yes Vital Signs Reviewed: Yes - History of Present Illness HPI Narrative: This is a 73 yo M who presents from his PCPs office for Afib with RVR and occasional beats of Vtach. Pt states no pain. Pt has no SOA or CP. Pt states hx of CABG but denies any cardiac stents since that time. Pts last cath was about 2 years ago. Pt states he follows with Dr. Coulter for Cardiology. Pt states his PCP wanted him to be seen or he wouldn't have come in. Pt Subjective Complaint: rapid heart beat Arrhythmia History: atrial fibrillation, on anti-coagulants (Eliquis ) Associated symptoms: Reports: denies other symptoms - Related Data Home Medications Medication Instructions Recorded Confirmed Dutasteride [Avodart] 0.5 mg PO DAILY 09/29/15 12/10/18 Tamsulosin [Flomax] 0.4 mg PO DAILY 09/29/15 12/10/18 Apixaban [Eliquis] 5 mg PO BID 11/27/16 12/10/18 metFORMIN [Glucophage] 500 mg PO BIDWM 12/09/18 12/10/18 Aspirin [Lo-Dose Aspirin EC] 81 mg PO DAILY 12/10/18 12/10/18 Atorvastatin [Lipitor] 40 mg PO DAILY 12/10/18 12/10/18 Clopidogrel [Plavix] 75 mg PO DAILY 12/10/18 12/10/18 Fenofibrate Nanocrystallized 160 mg PO DAILY 12/10/18 12/10/18 [Fenofibrate] Metoprolol [Lopressor] 25 mg PO BID 12/10/18 12/10/18 Multivitamin [One Daily Essential] 1 tab PO DAILY 12/10/18 12/10/18 [place]-3/Dha/Epa/Fish Oil [Fish Oil 1 cap PO DAILY 12/10/18 12/10/18 1,000 mg Softgel] Valsartan/Hydrochlorothiazide 1 tab PO DAILY 12/10/18 12/10/18 [Diovan Hct 80-12.5 mg Tablet] Previous Rx's Medication Instructions Recorded Azithromycin [Zithromax] 250 mg PO DAILY #4 tablet 12/11/18 Allergies Allergy/AdvReac Type Severity Reaction Status Date / Time GORDO Inhibitors AdvReac Cough Verified 12/05/16 09:55 All systems ED: reviewed and negative except as stated. Constitutional: Denies: fever, chills, weakness, weight change Eyes: Denies: eye pain, eye discharge, vision change ENT ED: Denies: ear pain, throat pain, dental pain, hearing loss, epistaxis, congestion, dysphagia Cardiovascular: Denies: chest pain, palpitations, dyspnea on exertion, edema, syncope Respiratory: Reports: other (Afib with RVR). Denies: cough, dyspnea, wheezes, hemoptysis, stridor Gastrointestinal: Denies: abdominal pain, nausea, vomiting, diarrhea, constipation, hematemesis, melena, hematochezia Genitourinary: Denies: urgency, dysuria, frequency, hematuria Musculoskeletal: Denies: back pain, neck pain, arthralgia, myalgia Integumentary: Denies: rash, abrasion, lesions Neurological: Denies: headache, weakness, numbness, paresthesias, confusion, abnormal gait, vertigo Psychiatric: Denies: anxiety, depression, suicidal thoughts, homicidal thoughts, auditory hallucinations, visual hallucinations Endocrine: Denies: fatigue Hematological/Lymphatic: Denies: easy bleeding, easy bruising Allergic/Immunologic: Denies: facial swelling, urticaria Past Medical History - Past Medical History Attestation: Yes The following information was validated with the patient. Source: patient Medical history: Reports: cancer, COPD, coronary artery disease, hyperlipidemia, hypertension, myocardial infarction Surgical history: Reports: angioplasty/stent, coronary bypass (CABG), vascular surgery Psychiatric history: Reports: no psych history - Social History Smoking Status: Former smoker Smokeless Tobacco Status: No ("dip") Alcohol use: Reports: none Drug use: Reports: none Physical Exam - General Limitations: no limitations General appearance: alert, in no apparent distress - Head Head exam: atraumatic, normocephalic, normal inspection - Eye Eye exam: Present: normal appearance, PERRL, EOMI - ENT ENT exam: normal exam, normal oropharynx, mucous membranes moist - Expanded ENT Exam External ear exam: Present: normal external inspection Mouth exam: Present: normal external inspection Teeth exam: Present: normal inspection Throat exam: Present: normal inspection - Neck Neck exam: Present: normal inspection, full ROM, trachea midline - Chest Chest inspection: Present: normal inspection, symmetric chest wall rise - Respiratory Respiratory exam: Present: normal lung sounds bilaterally - Cardiovascular Cardiovascular exam: Present: tachycardia, irregular rhythm - Abdominal Exam Abdominal exam: Present: soft, Non-Tender. Absent: tenderness, distention, guarding, rebound, rigidity - Extremities Exam Extremities exam: Present: normal inspection, full ROM. Absent: tenderness, pedal edema - Expanded Upper Extremity Exam Shoulder exam: Present: normal inspection, full ROM Arm exam: Present: normal inspection, full ROM Elbow exam: Present: normal inspection, full ROM Forearm/Wrist exam: Present: normal inspection, full ROM Hand exam: Present: normal inspection, full ROM Vascular exam: Normal: capillary refill, radial pulse - Expanded Lower Extremity Exam Hip/Pelvis exam: Present: normal inspection, full ROM Upper leg exam: Present: normal inspection, full ROM Knee exam: Present: normal inspection, full ROM Lower leg exam: Present: normal inspection, full ROM Ankle exam: Present: normal inspection, full ROM Foot/toe exam: Present: normal inspection, full ROM Neurovascular/Tendon exam: Absent: motor deficit, sensory deficit, tendon deficit - Back Exam Back exam: Present: normal inspection, full ROM. Absent: tenderness - Neurological Exam Neurological exam: Present: alert, oriented X3 - Expanded Neurological Exam Patient oriented to: Present: person, place, time Coma Scale Eye Opening: Spontaneous Coma Scale Motor Response: Obeys Commands Coma Scale Verbal Response: Oriented Coma Scale Total: 15 - Psychiatric Psychiatric exam: Present: normal affect, normal mood - Skin Skin exam: Present: warm, dry, intact, normal color Course - Consultations Consultation #1: I spoke with Dr. Hsu Cardiology horacio to consult. Time: 11:35 Consultation #2: I spoke with Dr. Storey hospitalist okay admit. Time: 11:45 Vital Signs Temperature 98.5 F 12/15/18 10:23 Pulse Rate 153 12/15/18 10:23 Respiratory Rate 22 12/15/18 10:23 Blood Pressure 155/73 12/15/18 10:23 O2 Sat by Pulse Oximetry 94 12/15/18 10:23 Temperature 98.5 F 12/15/18 10:23 Pulse Rate 125 12/15/18 11:22 Respiratory Rate 14 12/15/18 11:22 Blood Pressure 153/90 12/15/18 11:22 O2 Sat by Pulse Oximetry 95 12/15/18 11:22 Oxygen Delivery Oxygen Delivery Nasal Cannula Arrhythmia/Palpitations - Medical Records Medical records reviewed: Yes I reviewed the patient's medical records. - Lab Data Lab results reviewed: Yes I reviewed the patient's lab results. Result diagrams: 12/15/18 10:26 12/15/18 10:26 Lab Results 12/15/18 12/15/18 12/15/18 Range/Units 10:26 10:26 10:26 WBC 14.3 H D (4.3-11.1) K/mcL RBC 4.47 (4.19-5.50) M/mcL Hgb 13.5 (12.9-16.9) g/dL Hct 40.5 (37.5-50.1) % MCV 90.6 (83.0-100.0) fL MCH 30.2 (28.0-33.3) pg MCHC 33.3 (31.6-35.5) g/dL RDW 12.8 (11.5-14.5) % Plt Count 502 H (140-400) K/mcL MPV 8.6 L (9.4-12.4) fL Immature Gran % 0.6 (0-4) % Seg Neutrophils % 85.4 % Lymphocytes % 7.7 % Monocytes % 5.7 % Eosinophils % 0.3 % Basophils % 0.3 % Neutrophils # 12.2 H (1.6-8.9) K/mcL Lymphocytes # 1.1 (0.6-4.6) K/mcL Monocytes # 0.8 (0.0-1.3) K/mcL Eosinophils # 0.0 (0.0-0.6) K/mcL Basophils # 0.0 (0.0-0.2) K/mcL PT 19.7 H (9.4-12.1) Seconds INR 1.7 APTT 43.6 H (26.0-36.0) Seconds Sodium (136-145) mEq/L Potassium (3.5-5.1) mEq/L Chloride (98-107) mEq/L Carbon Dioxide (23-29) mEq/L BUN (8-23) mg/dL Creatinine (0.70-1.30) mg/dL Est GFR ( Amer) (> 60) Est GFR (Non-Af Amer) (> 60) BUN/Creatinine Ratio (6-26) Glucose (70-105) mg/dL Calculated Osmolality (280-300) Calcium (8.6-10.3) mg/dL Magnesium (1.6-2.6) mg/dL Total Bilirubin (0.3-1.0) mg/dL Direct Bilirubin (0.0-0.2) mg/dL Indirect Bilirubin (0.0-1.2) mg/dL AST (13-39) Units/L ALT (7-52) Units/L Alkaline Phosphatase (34-104) Units/L Troponin I (< 0.04) ng/mL B-Natriuretic Peptide 269 H (Less than 100) pg/mL Serum Total Protein (6.4-8.9) g/dL Albumin (3.5-5.7) g/dL Globulin (2.4-3.5) g/dL Albumin/Globulin Ratio (1.1-2.2) TSH (0.340-5.600) mcIU/mL 12/15/18 Range/Units 10:26 WBC (4.3-11.1) K/mcL RBC (4.19-5.50) M/mcL Hgb (12.9-16.9) g/dL Hct (37.5-50.1) % MCV (83.0-100.0) fL MCH (28.0-33.3) pg MCHC (31.6-35.5) g/dL RDW (11.5-14.5) % Plt Count (140-400) K/mcL MPV (9.4-12.4) fL Immature Gran % (0-4) % Seg Neutrophils % % Lymphocytes % % Monocytes % % Eosinophils % % Basophils % % Neutrophils # (1.6-8.9) K/mcL Lymphocytes # (0.6-4.6) K/mcL Monocytes # (0.0-1.3) K/mcL Eosinophils # (0.0-0.6) K/mcL Basophils # (0.0-0.2) K/mcL PT (9.4-12.1) Seconds INR APTT (26.0-36.0) Seconds Sodium 137 (136-145) mEq/L Potassium 4.0 (3.5-5.1) mEq/L Chloride 99 (98-107) mEq/L Carbon Dioxide 27 (23-29) mEq/L BUN 14 (8-23) mg/dL Creatinine 0.77 (0.70-1.30) mg/dL Est GFR ( Amer) > 60 (> 60) Est GFR (Non-Af Amer) > 60 (> 60) BUN/Creatinine Ratio 18 (6-26) Glucose 172 H (70-105) mg/dL Calculated Osmolality 289 (280-300) Calcium 9.3 (8.6-10.3) mg/dL Magnesium 2.1 (1.6-2.6) mg/dL Total Bilirubin 1.0 (0.3-1.0) mg/dL Direct Bilirubin 0.3 H (0.0-0.2) mg/dL Indirect Bilirubin 0.7 (0.0-1.2) mg/dL AST 17 (13-39) Units/L ALT 19 (7-52) Units/L Alkaline Phosphatase 69 (34-104) Units/L Troponin I < 0.03 (< 0.04) ng/mL B-Natriuretic Peptide (Less than 100) pg/mL Serum Total Protein 6.5 (6.4-8.9) g/dL Albumin 3.2 L (3.5-5.7) g/dL Globulin 3.3 (2.4-3.5) g/dL Albumin/Globulin Ratio 1.0 L (1.1-2.2) TSH 0.626 (0.340-5.600) mcIU/mL - Radiology Data Radiology results reviewed: Yes I reviewed the patient's radiology results. - EKG Data EKG attestation: Yes I reviewed and interpreted this EKG. Rate: tachycardia Rhythm: A.Fib
[2018-12-15 11:05] LABS: Basophils % 0.3 %; Eosinophils % 0.3 %; Hematocrit 40.5 % (37.5-50.1); Hemoglobin 13.5 g/dL (12.9-16.9); Immature Granulocytes % 0.6 % (0-4); Lymphocytes # 1.1 K/mcL (0.6-4.6); Lymphocytes % 7.7 %; Mean Corpuscular HGB Conc 33.3 g/dL (31.6-35.5); Mean Corpuscular Hemoglobin 30.2 pg (28.0-33.3); Mean Corpuscular Volume 90.6 fL (83.0-100.0); Mean Platelet Volume 8.6 fL (9.4-12.4); Monocytes # 0.8 K/mcL (0.0-1.3); Monocytes % 5.7 %; Platelet Count 502 K/mcL (140-400); Red Blood Count 4.47 M/mcL (4.19-5.50); Red Cell Distribution Width 12.8 % (11.5-14.5); Segmented Neutrophils % 85.4 %
[2018-12-15 11:06] LABS: Neutrophils # 12.2 K/mcL (1.6-8.9)
[2018-12-15 11:11] LABS: INR 1.7; Prothrombin Time 19.7 Seconds (9.4-12.1)
[2018-12-15 11:14] LABS: Activated Partial Thrombo Time 43.6 Seconds (26.0-36.0)
[2018-12-15 11:19] LABS: Alanine Aminotransferase 19 Units/L (7-52); Albumin 3.2 g/dL (3.5-5.7); Alkaline Phosphatase 69 Units/L (34-104); Aspartate Amino Transferase 17 Units/L (13-39); BUN/Creatinine Ratio 18 (6-26); Bilirubin,Direct 0.3 mg/dL (0.0-0.2); Bilirubin,Indirect 0.7 mg/dL (0.0-1.2); Blood Urea Nitrogen 14 mg/dL (8-23); Calcium 9.3 mg/dL (8.6-10.3); Carbon Dioxide 27 mEq/L (23-29); Chloride 99 mEq/L (98-107); Globulin 3.3 g/dL (2.4-3.5); Glucose 172 mg/dL (70-105); Magnesium 2.1 mg/dL (1.6-2.6); Osmolality,Calculated 289 (280-300); Sodium 137 mEq/L (136-145); Total Protein 6.5 g/dL (6.4-8.9); Troponin I < 0.03 ng/mL (< 0.04); eGFR For Non-African Americans > 60 (> 60)
[2018-12-15] MEDS ORDERED: Piperacillin/Tazobactam 3.375 GM in 0.9 % Sodium Chloride Mini Bag 100 ML IVPB ONE (11:30)
[2018-12-15 11:32] LABS: Thyroid Stimulating Hormone 0.626 mcIU/mL (0.340-5.600)
--- NOTE | 2018-12-15 15:48 | Cardiology Consult Note ---
<Guilherme Rodrigues - Last Filed: 12/15/18 16:17> Date of Encounter: 12/15/18 Time of Encounter: 15:48 Assessment and Plan (1) Atrial fibrillation with RVR Current Visit: Yes Status: Acute Presents in RVR with ventricular rate at 160 Likely 2/2 pneumonia and hypoxia Takes Lopressor 25mg BID at home since discharge on 12/11/18, denies any missed doses On Eliquis at home for anticoagulation EKG without acute ischemic changes Troponin negative Denies any chest pain or palpitations Increase Lopressor to 50mg BID at this time, however if RVR is refractory to this, will need Cardizem drip Continue home Eliquis Treatment of pneumonia per primary team - received IV Vanc and Zosyn in ED (2) Pneumonia Current Visit: Yes Status: Acute Afebrile Tachypnic on 2lpm supplemental O2 Afib with RVR Leukocytosis of 14.3 Recently treated for pneumonia during recent admission last week CXR from ED revealed new suprahilar and perihilar opacities on the right Completed abx course with Azithromycin after discharge on 12/11 Received IV Vanc and Zosyn in the ED Management per primary Qualifiers: Pneumonia type: due to unspecified organism Laterality: right Lung location: unspecified part of lung Qualified Code(s): J18.9 - Pneumonia, unspecified organism (3) CAD (coronary artery disease) Current Visit: Yes Status: Chronic Continue home ASA and Lipitor Metoprolol as above Continue home Hyzaar (Losartan/HCTZ) Qualifiers: Coronary Disease-Associated Artery/Lesion type: [place] artery [place] vs. transplanted heart: [place] heart Associated angina: without angina Qualified Code(s): I25.10 - Atherosclerotic heart disease of [place] coronary artery without angina pectoris (4) Mixed hyperlipidemia Current Visit: Yes Status: Chronic Continue home Lipitor (5) Essential hypertension Current Visit: Yes Status: Chronic Continue home Losartan/HCTZ Metoprolol as above (6) History of aortic valve replacement Current Visit: Yes Status: Chronic Hx of TAVR in 2017 Discussion w patient/family: The assessment and plan as outlined above was discussed with the patient and/or family members who expressed understanding and agreement. All questions were answered. Thank you for involving us in the care of your patient. Please call with any questions. History of Present Illness Consult date: 12/15/18 Requesting physician: Vish Kaplan Consult reason: Afib with RVR Chief complaint: Shortness of breath History of present illness: Mr. Camarillo is a 73 year old male with PMH of CAD with 3 previous FL's and a 3 vessel CABG in 2005, HLD, HTN, and s/p TAVR in 2017. He presents today from his PCP's office with worsening shortness of breath. Of note he was admitted last week on 12/10 for weakness. During that admission he was found to be in atrial fibrillation with RVR, was placed on a Cardizem drip initially, but was rate controlled on 25mg Lopressor BID at time of discharge. He was also sent home with Eliquis 5mg BID, and a course of Azithromycin for likely pneumonia. EKG from the ED today revealed afib with RVR once more with ventricular rate of 160. CXR revealed new opacities in the suprahilar and infrahilar right lung when compared to CXR from recent admission. Pt was afebrile, but tachypnic with respiratory rate around 22. He was also found to have a leukocytosis of 14.3. Pt seen and examined at bedside by this provider. Denies any chest pain. States he did experience some focal left sided chest pain prior to admission on 12/10, but states this resolved during that admission and has not returned at this time. States he continues to feel grossly short of breath. States normally his ambulation is only limited by his right knee pain, with no chest pain or shortness of breath. However today he was unable to ambulate 10 feet from the car to the bench outside the medical office building without significant difficulty. States he has been wearing his 's home O2 at 2.5L/min at home since he was discharged. Denies any missed medication doses. Denies any fever, chills, headaches, numbness, tingling, syncope, or change in vision. Most recent heart cath was 2 years ago prior to TAVR, pt and his state they were told the bypass grafts "looked great". Pt's does state the patient snores intermittently at night, but denies any witnessed apnea. Past Med Surg Social Fam HX - Past Medical History Medical history: cancer, COPD, coronary artery disease, hyperlipidemia, hypertension, myocardial infarction Additional medical history: 3 previous MIs Psychiatric history: no psych history - Past Surgical History Surgical History: angioplasty/stent, coronary bypass (CABG), vascular surgery Additional surgical history: skin ca removal (nose, face) - Social History Smoking Status: Former smoker Smokeless Tobacco Status: No ("dip") Alcohol use: none Drug use: none - Family History Mother Hx Family Cardiac Disorders: Yes ([place]) Father Hx Family Respiratory Disorders: Yes (lung ca) Medications and Allergies Dutasteride [Avodart] 0.5 mg PO DAILY 09/29/15 [History] Tamsulosin [Flomax] 0.4 mg PO DAILY 09/29/15 [History] Apixaban [Eliquis] 5 mg PO BID 11/27/16 [History] metFORMIN [Glucophage] 500 mg PO BIDWM 12/09/18 [History] Aspirin [Lo-Dose Aspirin EC] 81 mg PO DAILY 12/10/18 [History] Atorvastatin [Lipitor] 40 mg PO DAILY 12/10/18 [History] Fenofibrate Nanocrystallized [Fenofibrate] 160 mg PO DAILY 12/10/18 [History] Metoprolol [Lopressor] 25 mg PO BID 12/10/18 [History] Multivitamin [One Daily Essential] 1 tab PO DAILY 12/10/18 [History] [place]-3/Dha/Epa/Fish Oil [Fish Oil 1,000 mg Softgel] 1 cap PO DAILY 12/10/18 [History] Azithromycin [Zithromax] 250 mg PO DAILY #4 tablet 12/11/18 [Rx] Losartan/HCTZ [Hyzaar 50-12.5 Tablet] 1 each PO DAILY 12/15/18 [History] Allergy/AdvReac Type Severity Reaction Status Date / Time GORDO Inhibitors AdvReac Cough Verified 12/05/16 09:55 All Systems Review: The remainder of the systems were reviewed and are negative - Constitutional Constitutional: fatigue, weakness, no chills, no fever(s), no headache(s) - EENT Eyes: no blurred vision, no loss of vision - Cardiovascular Cardiovascular: dyspnea at rest, dyspnea on exertion, no chest pain at rest, no chest pain with exertion, no diaphoresis, no irregular heart rhythm, no lightheadedness, no orthopnea, no palpitations, no paroxysmal nocturnal dyspnea, no syncope - Respiratory Respiratory: dyspnea, no cough, no hemoptysis, no wheezing - Gastrointestinal Gastrointestinal: no abdominal pain, no constipation, no diarrhea, no hematemesis, no hematochezia, no melena - Genitourinary Genitourinary: no dysuria, no hematuria, no nocturia - Musculoskeletal Musculoskeletal: no arthralgias, no muscle weakness, no myalgias - Integumentary Integumentary: no erythema, no rash, no unusual bruising - Neurological Neurological: no abnormal speech, no dizziness, no loss of vision, no numbness, no syncope, no tingling - Hematological/Lymphatic Hematologic/Lymphatic: no easy bleeding, no easy bruising Physical Examination Vital Signs, Last 4 Hours Temp Pulse Resp BP Pulse Ox 12/15/18 14:26 97.7 F 108 18 143/82 89 12/15/18 13:29 104 22 133/84 94 12/15/18 12:38 98 20 130/85 94 12/15/18 12:15 100 120/85 General: Conversant, Other (mild respiratory distress ) HEENT: Atraumatic, Normocephaly, Mucus Membranes Moist Neck: No JVD, Normal carotid pulses Cardiac: Normal S1 and S2, Other (irregularly irregular rhythm, tachycardic ) Lungs: Normal Breath Sounds, No Wheeze, Rales, Rhonchi Neuro: Alert and responsive, No focal deficits noted Abdomen: Soft, Non-Tender Skin: No rashes noted on visualized skin Musculoskeletal: No Chest Wall Tenderness Extremities: No Clubbing, No Cyanosis, No Edema, Normal Pulses Results 12/15/18 10:26 12/15/18 10:26 Lab Results 12/15/18 12/15/18 12/15/18 10:26 10:26 10:26 WBC 14.3 H D Hgb 13.5 Hct 40.5 Plt Count 502 H INR 1.7 APTT 43.6 H Sodium Potassium Chloride Carbon Dioxide BUN Creatinine Glucose Calcium Magnesium Total Bilirubin AST ALT Alkaline Phosphatase Troponin I B-Natriuretic Peptide 269 H TSH 12/15/18 10:26 WBC Hgb Hct Plt Count INR APTT Sodium 137 Potassium 4.0 Chloride 99 Carbon Dioxide 27 BUN 14 Creatinine 0.77 Glucose 172 H Calcium 9.3 Magnesium 2.1 Total Bilirubin 1.0 AST 17 ALT 19 Alkaline Phosphatase 69 Troponin I < 0.03 B-Natriuretic Peptide TSH 0.626 - Imaging and Cardiology Chest Xray: report reviewed, image reviewed - EKG Interpretation EKG results cardiology: personally reviewed, no diagnostic ischemia, right bundle branch block, other (afib with RVR, ventricular rate 160) Consult Discharge Plan - Plan Referrals: Lake Brooks MD [Primary Care Provider] - <Kian Hsu - Last Filed: 12/16/18 18:26> Date of Encounter: 12/15/18 - Attending Attestation I examined this patient and my medical decision-making was reviewed with the Resident Physician. I agree with the documented findings, disposition and t reatment plan as described except to the extent set forth below. CC: Shortnes of breath, productive cough HPI: PT presented to ER with complaints of progressive productive cough, short ness of breath, initially had improved following hospitalization at [facility] last week for bronchitis. Pt reports shortness of breath has continued, with air hunger, has been using his 's O2 at 2 l pnc to breath comfortably. During recent hospitalization was found to be in A fib with RVR, was discharged on metoprolol and Eliquis. Pt found to be in A fib with RVR, heart rates in 160s on presentation to the ER this admission. Pt reports short of breath, however has not noted palpitations, chest pain or pressure. He notes shortness of breath has improved with tx since hospital admission. ROS: reviewed PMH: reviewed Labs, Xrays, EKG reviewed PE: pt seen and examined, agree with findings as documented IMP/Plan: 1. A fib with RVR, recent onset, ventricular response rate not well controlled on metoprolol tartrate 25 mg BID, better controlled on IV diltiazem, will increase metoprolol to 50 mg BID and follow clinically. Wean diltiazem drip as heart rate response is controlled. 2. Pneumonia: following with primary care, on Vanc and Zosyn 3. CAD; stable class 1 angina post CABG x 3. 4. ; post TAVR 2017, following at [facility]. Assessment and Plan Discussion w patient/family: The assessment and plan as outlined above was discussed with the patient and/or family members who expressed understanding and agreement. All questions were answered. Thank you for involving us in the care of your patient. Please call with any questions. History of Present Illness History of present illness: Mr. Camarillo is a 73 year old male All Systems Review: The remainder of the systems were reviewed and are negative Physical Examination Vital Signs, Last 4 Hours Temp Pulse Resp BP Pulse Ox 12/16/18 18:06 98.2 F 12/16/18 16:40 100.2 F H 108 18 112/76 92 Results 12/16/18 07:27 12/16/18 07:27 Lab Results 12/16/18 12/16/18 07:27 07:27 WBC 9.6 Hgb 11.8 L D Hct 36.3 L Plt Count 457 H Sodium 139 Potassium 3.6 Chloride 104 Carbon Dioxide 28 BUN 15 Creatinine 0.73 Glucose 149 H Calcium 8.7
[2018-12-15] MEDS ORDERED: Naloxone 0.4 MG/ML INJ IVP PRN (18:55)
[2018-12-15] MEDS ORDERED: *HR* Dextrose 50 % in Water (Syg) 50 ML SYRINGE IVP PRN (18:57)
[2018-12-15] MEDS ORDERED: D5% in Water 1,000 ML IVC PRN (18:57)
[2018-12-15] MEDS ORDERED: Dextrose Gel 15 GM/37.5 ML TUBE PO PRN ×2 (18:57)
--- NOTE | 2018-12-15 19:54 | Internal Med History&Physical ---
Date of Encounter: 12/15/18 Time of Encounter: 17:00 Internal Medicine - H&P: HPI Chief complaint: BRUSH; weakness Admitted From: Home Plans for Post Hospital Care: Home History of present illness: The patient is a 73-year-old male with past medical history of coronary artery disease (had a 3 vessel CABG in 2005), hypertension, hyperlipidemia and s/p TAVR. He presents today from his PCPs office with dyspnea on exertion. Having atrial fibrillation with rapid ventricular rate. It was last week, when he was admitted for severe weaknesswas found to be in atrial fibrillation with RVR. He was initially on IV Cardizem dripsent home on Lopressor at 25 mg by mouth twice a day and Eliquis at 5 mg by mouth twice a day. His todays EKG from emergency department revealed atrial fibrillation with RVRventricular rate of about 160. Chest x-ray shows new opacities in the suprahilar and infrahilar right lung, when compared to chest x-ray from the previous admission. The patient is afebrile. However he has elevated WBC count of 14.3 thousand. He is unable to ambulate 10 feet without shortness of breath. He was using s upplemental oxygen of his after last discharge. PAST MEDICAL HX: Atrial fibrillation, as mentioned above. Coronary artery disease (had CABG surgery in 2005). Hypertension, hyperlipidemia and s/p TAVR in 2017. He is also treated for BPH. PAST FAMILY HX: See below PAST SOCIAL HX: He is a former smoker. There is no history of alcohol or illicit drug use. REVIEW OF SYSTEMS: All 14 organ systems were reviewed by me with the patient. Positive and pertinent negative findings are listed above. The rest of organ systems is negative. PHYSICAL EXAM: Skin: Free of rash and discoloration. Eyes: Sclera is white. There is no discharge from eyes. ENMT: Oral/pharyngeal mucosa is normal in appearance. There is no discharge from nose or ears. Respiratory: Normal breath sounds with no crackles and wheezes bilaterally. CV: Heart is regular with no gallop or murmur. GI: Abdomen is flat and soft with no palpable mass or visceromegaly. : There is no tenderness in patient's flanks bilaterally. Neuro exam: He has good strength in upper and lower extremities. He has normal eye movements. Psychiatric: He has normal affect. His thought process is appropriate to the situation. ADDITIONAL DATA: His EKG from the admission is mentioned above. I will get and another one tomorrow morning. Chest x-ray from emergency department is mentioned above, too. CBC shows hemoglobin of 13.5 with a WBC of 14.3 thousand and platelet count of 502,000. Electrolytes are normal. Creatinine 0.77. Random glucose is 172. Calcium and magnesium are normal. Liver function tests are normal. TSH is 0.626. His last echocardiogram was done in October 2018. It showed ejection fraction of 50-55%. With indeterminate diastolic function. Bioprosthetic aortic valve appears well seated. A/P: Atrial fibrillation with RVR/coronary artery disease. Cardiology is consulted. The patient received 5 mg of IV Lopressor; followed by oral Lopressor at 50 mg twice a day. His ventricular rate remains under control at this time. He is on Eliquis at 5 mg by mouth twice a day. Pneumonia. He may have a new case of pneumonia. He received IV vancomycin and IV Zosyn in the emergency department. I think, that we need to continue dose medications. Essential hypertension. I feel, that it would be under controlwhen using oral Lopressor. Type 2 diabetes mellitus. He was taking metformin at home. He will be taking When necessary Humalog in the hospital. History of aortic valve replacement. Past Med Surg Social Fam HX - Past Medical History Medical history: cancer, COPD, coronary artery disease, hyperlipidemia, hypertension, myocardial infarction Additional medical history: 3 previous MIs Psychiatric history: no psych history - Past Surgical History Surgical History: angioplasty/stent, coronary bypass (CABG), vascular surgery Additional surgical history: skin ca removal (nose, face) - Social History Smoking Status: Former smoker Smokeless Tobacco Status: No ("dip") Alcohol use: none Drug use: none - Family History Mother Hx Family Cardiac Disorders: Yes ([place]) Father Hx Family Respiratory Disorders: Yes (lung ca) Internal Medicine - H&P: Meds Dutasteride [Avodart] 0.5 mg PO DAILY 09/29/15 [History] Tamsulosin [Flomax] 0.4 mg PO DAILY 09/29/15 [History] Apixaban [Eliquis] 5 mg PO BID 11/27/16 [History] metFORMIN [Glucophage] 500 mg PO BIDWM 12/09/18 [History] Aspirin [Lo-Dose Aspirin EC] 81 mg PO DAILY 12/10/18 [History] Atorvastatin [Lipitor] 40 mg PO DAILY 12/10/18 [History] Fenofibrate Nanocrystallized [Fenofibrate] 160 mg PO DAILY 12/10/18 [History] Metoprolol [Lopressor] 25 mg PO BID 12/10/18 [History] Multivitamin [One Daily Essential] 1 tab PO DAILY 12/10/18 [History] [place]-3/Dha/Epa/Fish Oil [Fish Oil 1,000 mg Softgel] 1 cap PO DAILY 12/10/18 [History] Azithromycin [Zithromax] 250 mg PO DAILY #4 tablet 12/11/18 [Rx] Losartan/HCTZ [Hyzaar 50-12.5 Tablet] 1 each PO DAILY 12/15/18 [History] Allergy/AdvReac Type Severity Reaction Status Date / Time GORDO Inhibitors AdvReac Cough Verified 12/05/16 09:55 - Constitutional Vitals: Temp Pulse Resp BP Pulse Ox 97.9 F 105 16 121/72 90 12/15/18 18:57 12/15/18 18:57 12/15/18 18:57 12/15/18 18:57 12/15/18 18:57 General appearance: Present: A&O X 3, no acute distress, answers questions appropriately Exam: xx Internal Med - H&P Results - Labs CBC & Chem 7: 12/15/18 10:26 12/15/18 10:26 Labs: Short CBC 12/15/18 Range/Units 10:26 WBC 14.3 H D (4.3-11.1) K/mcL Hgb 13.5 (12.9-16.9) g/dL Hct 40.5 (37.5-50.1) % Plt Count 502 H (140-400) K/mcL Neutrophils # 12.2 H (1.6-8.9) K/mcL BMP 12/15/18 10:26 Sodium 137 Potassium 4.0 Chloride 99 Carbon Dioxide 27 BUN 14 Creatinine 0.77 Glucose 172 H Calcium 9.3 Cardiac Enzymes 12/15/18 Range/Units 10:26 Troponin I < 0.03 (< 0.04) ng/mL Liver Function 12/15/18 Range/Units 10:26 Total Bilirubin 1.0 (0.3-1.0) mg/dL Direct Bilirubin 0.3 H (0.0-0.2) mg/dL AST 17 (13-39) Units/L ALT 19 (7-52) Units/L Alkaline Phosphatase 69 (34-104) Units/L Albumin 3.2 L (3.5-5.7) g/dL - Impressions ITS Impressions Chest X-Ray 12/15/18 10:36 IMPRESSION: New opacities in the suprahilar and infrahilar right lung could be related to multifocal pneumonia or asymmetric pulmonary edema. Small bilateral pleural effusions. D/ / Srikanth Dosbon MD / Srikanth Dobson MD Interpreting Provider: Srikanth Dobson MD - Assessment and Plan (1) Atrial fibrillation with RVR Current Visit: Yes Status: Acute (2) CAD (coronary artery disease) Current Visit: Yes Status: Chronic Qualifiers: Coronary Disease-Associated Artery/Lesion type: [place] artery [place] vs. 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
[2018-12-15] MEDS: Insulin LISPRO 300 UNITS/3 ML VIAL SQ SCH (20:46)
[2018-12-15] MEDS: Apixaban 5 MG TABLET PO SCH (21:00)
[2018-12-15] MEDS: Insulin DETEMIR 100 UNIT/ML X5UNITS SQ SCH (21:00)
[2018-12-15 21:23] LABS: Estimated Average Glucose 148 mg/dl; Hemoglobin A1C 6.8 %
[2018-12-16] MEDS: Piperacillin/Tazobactam 3.375 GM in 0.9 % Sodium Chloride Mini Bag 100 ML IVPB SCH ×3 (00:29→17:57)
[2018-12-16 08:05] LABS: Basophils # 0.1 K/mcL (0.0-0.2); Basophils % 0.7 %; Eosinophils # 0.1 K/mcL (0.0-0.6); Eosinophils % 1.3 %; Hematocrit 36.3 % (37.5-50.1); Immature Granulocytes % 0.3 % (0-4); Lymphocytes # 1.3 K/mcL (0.6-4.6); Lymphocytes % 13.2 %; Mean Corpuscular HGB Conc 32.5 g/dL (31.6-35.5); Mean Corpuscular Hemoglobin 30.1 pg (28.0-33.3); Mean Corpuscular Volume 92.6 fL (83.0-100.0); Mean Platelet Volume 8.8 fL (9.4-12.4); Monocytes # 0.6 K/mcL (0.0-1.3); Monocytes % 6.3 %; Neutrophils # 7.5 K/mcL (1.6-8.9); Platelet Count 457 K/mcL (140-400); Red Blood Count 3.92 M/mcL (4.19-5.50); Red Cell Distribution Width 12.8 % (11.5-14.5); Segmented Neutrophils % 78.2 %
[2018-12-16 08:13] LABS: Hemoglobin 11.8 g/dL (12.9-16.9)
[2018-12-16 08:22] LABS: BUN/Creatinine Ratio 21 (6-26); Blood Urea Nitrogen 15 mg/dL (8-23); Calcium 8.7 mg/dL (8.6-10.3); Carbon Dioxide 28 mEq/L (23-29); Chloride 104 mEq/L (98-107); Glucose 149 mg/dL (70-105); Osmolality,Calculated 292 (280-300); Potassium 3.6 mEq/L (3.5-5.1); Sodium 139 mEq/L (136-145); eGFR For Non-African Americans > 60 (> 60)
[2018-12-16] MEDS ORDERED: Aminoglycoside Consult 1 EACH MC ONE (08:55)
[2018-12-16] MEDS: Insulin LISPRO 300 UNITS/3 ML VIAL SQ SCH ×7 (09:17→20:28)
[2018-12-16] MEDS: Apixaban 5 MG TABLET PO SCH ×2 (09:18→20:16)
[2018-12-16] MEDS: Fenofibrate 54 MG TABLET PO SCH (09:18)
[2018-12-16] MEDS: Losartan/HCTZ 50-12.5 TABLET PO SCH (09:18)
[2018-12-16] MEDS: Finasteride 5 MG TABLET PO SCH (09:18)
[2018-12-16] MEDS: Aspirin Enteric Coated 81 MG Tablet PO SCH (09:18)
--- NOTE | 2018-12-16 09:31 | Cardiology Progress Note ---
<Guilherme Rodrigues - Last Filed: 12/16/18 09:28> Date of Encounter: 12/16/18 Time of Encounter: 08:45 Assessment and Plan (1) Atrial fibrillation with RVR Current Visit: Yes Status: Acute Presented in RVR with ventricular rate at 160, average HR overnight was 103 Likely 2/2 pneumonia and hypoxia Takes Lopressor 25mg BID at home since discharge on 12/11/18, denies any missed doses On Eliquis at home for anticoagulation EKG without acute ischemic changes Troponin negative Denies any chest pain or palpitations Continue Lopressor 50mg BID at this time Continue home Eliquis Treatment of pneumonia per primary team - currently on IV Vanc and Zosyn (2) Pneumonia Current Visit: Yes Status: Acute Improved some clinically overnight Afebrile Respiratory rate improved at this time, remains on 2lpm supplemental O2 Afib with RVR - rate improved to 103 average overnight Leukocytosis resolved this morning at 9.6 Recently treated for pneumonia during recent admission last week CXR from ED revealed new suprahilar and perihilar opacities on the right Completed abx course with Azithromycin after discharge on 12/11 Currently on IV Vanc and Zosyn Management per primary Qualifiers: Pneumonia type: due to unspecified organism Laterality: right Lung location: unspecified part of lung Qualified Code(s): J18.9 - Pneumonia, unspecified organism (3) CAD (coronary artery disease) Current Visit: Yes Status: Chronic Continue home ASA and Lipitor Metoprolol as above Qualifiers: Coronary Disease-Associated Artery/Lesion type: [place] artery [place] vs. transplanted heart: [place] heart Associated angina: without angina Qualified Code(s): I25.10 - Atherosclerotic heart disease of [place] coronary artery without angina pectoris (4) Mixed hyperlipidemia Current Visit: Yes Status: Chronic Continue home Lipitor (5) Essential hypertension Current Visit: Yes Status: Chronic Metoprolol as above (6) History of aortic valve replacement Current Visit: Yes Status: Chronic Hx of TAVR in 2017 Discussion w patient/family: The assessment and plan as outlined above was discussed with the patient and/or family members who expressed understanding and agreement. All questions were answered. Thank you for involving us in the care of your patient. Please call with any questions. Subjective Principal diagnosis: Pneumonia Interval history: Pt seen and examined at bedside. States shortness of breath has still improved from yesterday. Continues to deny chest pressure or chest pain. Denies any fever or chills. No syncope, lightheadedness, numbness, or tingling. Objective Vital Signs, Last 4 Hours Temp Pulse Resp BP Pulse Ox 12/16/18 08:11 98.1 F 98 18 122/74 92 General: Conversant, No Apparent Distress HEENT: Atraumatic, Normocephaly, Mucus Membranes Moist Neck: No JVD, Normal carotid pulses Cardiac: Normal S1 and S2, Other (Irregularly irregular. Tachycardic ) Lungs: Normal Breath Sounds, No Wheeze, Rales, Rhonchi Neuro: Alert and responsive, No focal deficits noted Abdomen: Soft, Non-Tender Skin: No rashes noted on visualized skin Musculoskeletal: No Chest Wall Tenderness Extremities: No Clubbing, No Cyanosis, No Edema, Normal Pulses Results 12/16/18 07:27 12/16/18 07:27 Lab Results 12/15/18 12/15/18 12/15/18 10:26 10:26 10:26 WBC 14.3 H D Hgb 13.5 Hct 40.5 Plt Count 502 H INR 1.7 APTT 43.6 H Sodium Potassium Chloride Carbon Dioxide BUN Creatinine Glucose Calcium Magnesium Total Bilirubin AST ALT Alkaline Phosphatase Troponin I B-Natriuretic Peptide 269 H TSH 12/15/18 12/16/18 12/16/18 10:26 07:27 07:27 WBC 9.6 Hgb 11.8 L D Hct 36.3 L Plt Count 457 H INR APTT Sodium 137 139 Potassium 4.0 3.6 Chloride 99 104 Carbon Dioxide 27 28 BUN 14 15 Creatinine 0.77 0.73 Glucose 172 H 149 H Calcium 9.3 8.7 Magnesium 2.1 Total Bilirubin 1.0 AST 17 ALT 19 Alkaline Phosphatase 69 Troponin I < 0.03 B-Natriuretic Peptide TSH 0.626 - EKG Interpretation EKG results cardiology: personally reviewed, other (afib with RVR) Consult Discharge Plan - Plan Referrals: Lake Brooks MD [Primary Care Provider] - <Kian Hsu - Last Filed: 12/16/18 18:34> Date of Encounter: 12/16/18 Time of Encounter: 11:00 Assessment and Plan Discussion w patient/family: The assessment and plan as outlined above was discussed with the patient and/or family members who expressed understanding and agreement. All questions were answered. Thank you for involving us in the care of your patient. Please call with any questions. Objective Vital Signs, Last 4 Hours Temp Pulse Resp BP Pulse Ox 12/16/18 18:06 98.2 F 12/16/18 16:40 100.2 F H 108 18 112/76 92 Results 12/16/18 07:27 12/16/18 07:27 Lab Results 12/16/18 12/16/18 07:27 07:27 WBC 9.6 Hgb 11.8 L D Hct 36.3 L Plt Count 457 H Sodium 139 Potassium 3.6 Chloride 104 Carbon Dioxide 28 BUN 15 Creatinine 0.73 Glucose 149 H Calcium 8.7 Attestation Statement - Attestation Attestation: I examined this patient and my medical decision-making was reviewed with the Resident Physician. I agree with the documented findings, disposition and treatment plan as described except to the extent set forth below. CC: Shortness of breath HPI: Pt reports shortness of breath has improved, was able to sleep reclined last PM. Reports no palpitations, chest pain or pressure. ROS:reviewed PMH:reviewed PE: pt seen and examined, looks much better today, agree with findings as documented. IMP/Plan; 1. A fib with RVR, better controlled on increased metoprolol, continue to monitor heart rate response to increased activity, on Eliquis for primary stroke risk reduction. 2. Pneumonia: shortness of breath improving, management per primary care team. 3. CAD: stable class 1 angina, at low levels of exertion, limited by left knee pain
--- NOTE | 2018-12-16 10:02 | Internal Med Progress Note ---
Hospitalist Progress Note - Encounter Date of Encounter: 12/16/18 Time of Encounter: 09:55 - Subjective Interval History: Patient seen and examined this morning at bedside. No acute overnight events. Breathing improving gradually. Denies any chest pain fevers but with some chills. Needing oxygen with 6 min walk test per nurse. - Exam Vitals: Temp Pulse Resp BP Pulse Ox 98.1 F 98 18 122/74 92 12/16/18 08:11 12/16/18 08:11 12/16/18 08:11 12/16/18 08:11 12/16/18 08:11 Exam: General: In no acute distress. Respiratory exam: CTAB. no accessory muscle use, rales, rhonchi, wheezes Cardiovascular exam: tachycardic, irregular, +S1, +S2. no murmur, gallop, rubs. GI/Abdominal exam: Non-tender, Non-distended, normal bowel sounds, soft, no peritoneal signs. Extremities exam: full ROM, 1+ pedal edema, warm, no calf tenderness Neurological exam: CN II-XII intact, AO X3, no focal deficits. Skin exam: No skin rash - Assessment and Plan (1) CAD (coronary artery disease) Current Visit: Yes Status: Chronic (2) Essential hypertension Current Visit: Yes Status: Chronic (3) History of aortic valve replacement Current Visit: Yes Status: Chronic (4) Pneumonia Current Visit: Yes Status: Acute (5) Atrial fibrillation with RVR Current Visit: Yes Status: Acute (6) T2DM (type 2 diabetes mellitus) Current Visit: Yes Status: Acute - Summary of Assessment and Plan Summary of Assessment and Plan: Atrial fibrillation with RVR/coronary artery disease. - Lopressor increased to 50 BID per Cardiology. EKG without acute changes. Overnight HR <100 - c/w Eliquis, asa and statin Pneumonia. - may have a new pneumonia on cXR. Unclear organism. - c/w IV vancomycin and IV Zosyn. Will obtain MRSA screen, Respiratory panel, sputum culture if possible legionella and strep antigen and CT chest without contrast. f/u blood culture. Will deescalate soon. HLD - c/w atorvastatin Essential hypertension. - c/w Lopressor. BP well controlled Type 2 diabetes mellitus - c/w SSI. Metformin on hold History of aortic valve replacement DVT ppx - On eliquis - Time Spent with Patient Total time spent is greater than 50% in coordination of care (as documented) at patient's floor/unit and/or counseling patient: Internal Medicine: Result - Labs CBC & Chem 7: 12/16/18 07:27 12/16/18 07:27 Labs: Short CBC 12/15/18 12/16/18 Range/Units 10:26 07:27 WBC 14.3 H D 9.6 (4.3-11.1) K/mcL Hgb 13.5 11.8 L D (12.9-16.9) g/dL Hct 40.5 36.3 L (37.5-50.1) % Plt Count 502 H 457 H (140-400) K/mcL Neutrophils # 12.2 H 7.5 (1.6-8.9) K/mcL BMP 12/15/18 12/16/18 10:26 07:27 Sodium 137 139 Potassium 4.0 3.6 Chloride 99 104 Carbon Dioxide 27 28 BUN 14 15 Creatinine 0.77 0.73 Glucose 172 H 149 H Calcium 9.3 8.7 Cardiac Enzymes 12/15/18 Range/Units 10:26 Troponin I < 0.03 (< 0.04) ng/mL Liver Function 12/15/18 Range/Units 10:26 Total Bilirubin 1.0 (0.3-1.0) mg/dL Direct Bilirubin 0.3 H (0.0-0.2) mg/dL AST 17 (13-39) Units/L ALT 19 (7-52) Units/L Alkaline Phosphatase 69 (34-104) Units/L Albumin 3.2 L (3.5-5.7) g/dL - ABG Interpretation ABG results: PT/INR, D-dimer PT 19.7 Seconds (9.4-12.1) H 12/15/18 10:26 - Impressions Impressions Chest X-Ray 12/15/18 10:36 IMPRESSION: New opacities in the suprahilar and infrahilar right lung could be related to multifocal pneumonia or asymmetric pulmonary edema. Small bilateral pleural effusions. D/ / Srikanth Dobson MD / Srikanth Dobson MD Interpreting Provider: Srikanth Dobson MD Consult Discharge Plan - Plan Referrals: Lake Brooks MD [Primary Care Provider] - (1) CAD (coronary artery disease) Qualifiers: Coronary Disease-Associated Artery/Lesion type: [place] artery [place] vs. transplanted heart: [place] heart Associated angina: without angina Qualified Code(s): I25.10 - Atherosclerotic heart disease of [place] coronary artery without angina pectoris (4) Pneumonia Qualifiers: Pneumonia type: due to unspecified organism Laterality: right Lung location: unspecified part of lung Qualified Code(s): J18.9 - Pneumonia, unspecified organism (6) T2DM (type 2 diabetes mellitus) Qualifiers: Diabetes mellitus alf insulin use: without alf use Diabetes mellitus complication status: without complication Qualified Code(s): E11.9 - Type 2 diabetes mellitus without complications
[2018-12-16 11:11] LABS: Adenovirus Not Detected (Not Detect); Bordetella Pertussis Not Detected (Not Detect); Chlamydophila pneumoniae Not Detected (Not Detect); Coronavirus 229E Not Detected (Not Detect); Coronavirus HKU1 Not Detected (Not Detect); Coronavirus NL63 Not Detected (Not Detect); Coronavirus OC43 Not Detected (Not Detect); Human Metapneumovirus Not Detected (Not Detect); Human Rhinovirus/Enterovirus Not Detected (Not Detect); Influenza A Subtype 2009 H1 Not Detected (Not Detect); Influenza A Untypeable Not Detected (Not Detect); Influenza B Not Detected (Not Detect); Mycoplasma pneumoniae Not Detected (Not Detect); Parainfluenza Virus 1 Not Detected (Not Detect); Parainfluenza Virus 2 Not Detected (Not Detect); Parainfluenza Virus 3 Not Detected (Not Detect); Parainfluenza Virus 4 Not Detected (Not Detect); Respiratory Syncytial Virus Not Detected (Not Detect)
[2018-12-16] MEDS: Insulin DETEMIR 100 UNIT/ML X5UNITS SQ SCH (20:16)
[2018-12-17] MEDS: Piperacillin/Tazobactam 3.375 GM in 0.9 % Sodium Chloride Mini Bag 100 ML IVPB SCH ×3 (00:19→16:50)
[2018-12-17] MEDS: Losartan/HCTZ 50-12.5 TABLET PO SCH (09:28)
[2018-12-17] MEDS: Fenofibrate 54 MG TABLET PO SCH (09:29)
[2018-12-17] MEDS: Finasteride 5 MG TABLET PO SCH (09:29)
[2018-12-17] MEDS: Apixaban 5 MG TABLET PO SCH ×2 (09:29→21:23)
[2018-12-17] MEDS: Aspirin Enteric Coated 81 MG Tablet PO SCH (09:29)
[2018-12-17] MEDS: Insulin LISPRO 300 UNITS/3 ML VIAL SQ SCH ×7 (09:31→21:24)
--- NOTE | 2018-12-17 09:46 | Cardiology Progress Note ---
<Guilherme Rodrigues - Last Filed: 12/17/18 09:43> Date of Encounter: 12/17/18 Time of Encounter: 09:43 Assessment and Plan (1) Atrial fibrillation with RVR Current Visit: Yes Status: Acute Presented in RVR with ventricular rate at 160, average HR overnight was 103 Likely 2/2 pneumonia and hypoxia Takes Lopressor 25mg BID at home since discharge on 12/11/18, denies any missed doses On Eliquis at home for anticoagulation EKG without acute ischemic changes Troponin negative Denies any chest pain or palpitations Continue Lopressor 50mg BID at this time Continue home Eliquis Treatment of pneumonia per primary team - currently on IV Vanc and Zosyn Pt continues to be rate controlled with the Lopressor at this time. Cardiology will sign off at this time. Please do not hesitate to call with any further questions or concerns. Follow up with Cardiology as outpatient in 1 month. (2) Pneumonia Current Visit: Yes Status: Inactive Improved some clinically overnight Afebrile Respiratory rate improved at this time, remains on 2lpm supplemental O2 Afib with RVR - rate remains at 103 average overnight Leukocytosis resolved yesterday - no labs for today Recently treated for pneumonia during recent admission last week CXR from ED revealed new suprahilar and perihilar opacities on the right Completed abx course with Azithromycin after discharge on 12/11 CT chest from 12/16 revealed the following findings: - Multifocal consolidation and ground-glass opacities scattered throughout both lungs compatibile with multifocal pneumonia. - Small pleural effusions bilaterally. likely reactive - Enlarged right paratracheal lymph node likely reactive Currently on IV Vanc and Zosyn Management per primary Qualifiers: Pneumonia type: due to unspecified organism Laterality: right Lung locat ion: unspecified part of lung Qualified Code(s): J18.9 - Pneumonia, unspecified organism (3) CAD (coronary artery disease) Current Visit: Yes Status: Chronic Continue home ASA and Lipitor Metoprolol as above Qualifiers: Coronary Disease-Associated Artery/Lesion type: [place] artery [place] vs. transplanted heart: [place] heart Associated angina: without angina Qualified Code(s): I25.10 - Atherosclerotic heart disease of [place] coronary artery without angina pectoris (4) Mixed hyperlipidemia Current Visit: Yes Status: Chronic Continue home Lipitor (5) Essential hypertension Current Visit: Yes Status: Chronic Metoprolol as above (6) History of aortic valve replacement Current Visit: Yes Status: Chronic Hx of TAVR in 2017 Discussion w patient/family: The assessment and plan as outlined above was discussed with the patient and/or family members who expressed understanding and agreement. All questions were answered. Thank you for involving us in the care of your patient. Please call with any questions. Subjective Principal diagnosis: Pneumonia Interval history: Pt seen and examined at bedside. States shortness of breath has remains about the same when compared to yesterday, however improved overall. Continues to deny chest pressure or chest pain. Denies any fever or chills. No syncope, lightheadedness, numbness, or tingling. Objective Vital Signs, Last 4 Hours Temp Pulse Resp BP Pulse Ox 12/17/18 09:21 90 12/17/18 06:57 97.8 F 108 18 148/74 90 General: Conversant, No Apparent Distress HEENT: Atraumatic, Normocephaly, Mucus Membranes Moist Neck: No JVD, Normal carotid pulses Cardiac: Normal S1 and S2, No Murmur, Other (irregularly irregular rhythm ) Lungs: Normal Breath Sounds, No Wheeze, Rales, Rhonchi Neuro: Alert and responsive, No focal deficits noted Abdomen: Soft, Non-Tender Skin: No rashes noted on visualized skin Musculoskeletal: No Chest Wall Tenderness Extremities: No Clubbing, No Cyanosis, No Edema, Normal Pulses Results 12/16/18 07:27 12/16/18 07:27 - Imaging and Cardiology Other Results: CT chest images and report reviewed Consult Discharge Plan - Plan Referrals: Lake Brooks MD [Primary Care Provider] - Kian Hsu DO [Partnered Physician] - (Follow up as outpatient in 1 month ) <Kian Hsu - Last Filed: 12/17/18 18:03> Date of Encounter: 12/17/18 Assessment and Plan Discussion w patient/family: The assessment and plan as outlined above was discussed with the patient and/or family members who expressed understanding and agreement. All questions were answered. Thank you for involving us in the care of your patient. Please call with any questions. Objective Vital Signs, Last 4 Hours Temp Pulse Resp BP Pulse Ox 12/17/18 15:15 98.6 F 96 16 127/75 92 Results 12/16/18 07:27 12/16/18 07:27 Attestation: My signature below is to certify that this patient is under my care and that I, or nurse practitioner, or a physician's timber management assistant working with me, has a [id number] encounter with this patient. CC: Shortness of breath HPI: Pt reports is breathing much easier, now able to lie flat without shortness of breath. He reports cough has improved, no longer productive. He has been up in room, no sensation of palpitations. ROS:reviewed PMH: reviewed Labs, Xrays, tele reviewed PE: PT seen and examined, agree with findings as documented IMP/Plan 1. A fib with RVR, ventricular response rate now well controlled on metoprolol tartrate 50 mg bid, on systemic anticoagulation for primary stroke risk reduction with Eliquis, continues to improve. Will sign off, pt to follow up in office in 4 weeks, will reevaluate for cosideration of DC cardioversion.
--- NOTE | 2018-12-17 10:29 | Electrocardiograph Report ---
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
--- NOTE | 2018-12-17 13:38 | Internal Med Progress Note ---
Hospitalist Progress Note - Encounter Date of Encounter: 12/17/18 Time of Encounter: 09:44 - Subjective Interval History: Patient seen and examined this morning at bedside. No acute overnight events. Breathing much improved. Denies any chest pain. Denies any bowel or bladder complaints. - Exam Vitals: Temp Pulse Resp BP Pulse Ox 98.7 F 97 16 112/74 92 12/17/18 11:09 12/17/18 11:09 12/17/18 11:09 12/17/18 11:09 12/17/18 11:09 Exam: General: In no acute distress. Respiratory exam: CTAB. no accessory muscle use, rales, rhonchi, wheezes Cardiovascular exam: RRR, irregular, +S1, +S2. no murmur, gallop, rubs. GI/Abdominal exam: Non-tender, Non-distended, normal bowel sounds, soft, no peritoneal signs. Extremities exam: full ROM, 1+ pedal edema, warm, no calf tenderness Neurological exam: CN II-XII intact, AO X3, no focal deficits. Skin exam: No skin rash - Assessment and Plan (1) CAD (coronary artery disease) Current Visit: Yes Status: Chronic (2) Essential hypertension Current Visit: Yes Status: Chronic (3) History of aortic valve replacement Current Visit: Yes Status: Chronic (4) Pneumonia Current Visit: Yes Status: Inactive (5) Atrial fibrillation with RVR Current Visit: Yes Status: Acute (6) T2DM (type 2 diabetes mellitus) Current Visit: Yes Status: Acute - Summary of Assessment and Plan Summary of Assessment and Plan: Atrial fibrillation with RVR/coronary artery disease. - HR controlled with Lopressor 50 BID per Cardiology. - c/w Eliquis, asa and statin Pneumonia. - CT with multifocal pneumonia. MRSA negative. Will stop vancomycin as less likely to be MRSA. Respiratory panel, urinary antigens negative - f/u blood culture. NGTD. c/w Zosyn HLD - c/w atorvastatin Essential hypertension. - c/w Lopressor. BP well controlled Type 2 diabetes mellitus - c/w SSI. Metformin on hold DVT ppx - On eliquis - Time Spent with Patient Total time spent is greater than 50% in coordination of care (as documented) at patient's floor/unit and/or counseling patient: Internal Medicine: Result - Labs CBC & Chem 7: 12/16/18 07:27 12/16/18 07:27 - ABG Interpretation ABG results: PT/INR, D-dimer PT 19.7 Seconds (9.4-12.1) H 12/15/18 10:26 Consult Discharge Plan - Plan Referrals: Lake Brooks MD [Primary Care Provider] - Kian Hsu DO [Partnered Physician] - (Follow up as outpatient in 1 month ) (1) CAD (coronary artery disease) Qualifiers: Coronary Disease-Associated Artery/Lesion type: [place] artery [place] vs. 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
[2018-12-17] MEDS: Insulin DETEMIR 100 UNIT/ML X5UNITS SQ SCH (21:23)
[2018-12-18] MEDS: Piperacillin/Tazobactam 3.375 GM in 0.9 % Sodium Chloride Mini Bag 100 ML IVPB SCH ×2 (00:34→09:49)
--- NOTE | 2018-12-18 07:59 | Electrocardiograph Report ---
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
[2018-12-18] MEDS: Finasteride 5 MG TABLET PO SCH (09:48)
[2018-12-18] MEDS: Apixaban 5 MG TABLET PO SCH (09:48)
[2018-12-18] MEDS: Aspirin Enteric Coated 81 MG Tablet PO SCH (09:48)
[2018-12-18] MEDS: Fenofibrate 54 MG TABLET PO SCH (09:48)
[2018-12-18] MEDS: Losartan/HCTZ 50-12.5 TABLET PO SCH (09:48)
[2018-12-18] MEDS: Insulin LISPRO 300 UNITS/3 ML VIAL SQ SCH ×4 (09:49→12:53)
--- NOTE | 2018-12-18 11:00 | Discharge Summary ---
- NOTES TO OUTPATIENT PROVIDER Notes to Outpatient Provider: Patient will need follow up chest imaging to ensure clearance of opacities. Orders not resulted at time of discharge: Pending orders 12/15/18 11:54 Culture,Blood [BC] Stat 12/15/18 11:56 Procalcitonin Stat Date of Encounter: 12/19/18 Time of Encounter: 10:56 - Discharge Diagnosis (1) CAD (coronary artery disease) Priority: Secondary Status: Chronic Qualifiers: Coronary Disease-Associated Artery/Lesion type: [place] artery [place] vs. transplanted heart: [place] heart Associated angina: without angina Qualified Code(s): I25.10 - Atherosclerotic heart disease of [place] coronary artery without angina pectoris (2) Essential hypertension Priority: Secondary Status: Chronic (3) History of aortic valve replacement Priority: Secondary Status: Chronic (4) Pneumonia Priority: Primary Status: Inactive Qualifiers: Pneumonia type: due to unspecified organism Laterality: bilateral Lung location: unspecified part of lung Qualified Code(s): J18.9 - Pneumonia, unspecified organism (5) Atrial fibrillation with RVR Priority: Secondary Status: Acute (6) T2DM (type 2 diabetes mellitus) Priority: Secondary Status: Acute Qualifiers: Diabetes mellitus fdc insulin use: without remote computer terminal operator use Diabetes mellitus complication status: without complication Qualified Code(s): E11.9 - Type 2 diabetes mellitus without complications Hospital course: Mr. Camarillo is a 73 year old male with PMHx of CAD, HTN, HLD, TAVR, Afib was send from PCPs office for rapid heart rate. He was also found to have new infiltrates on CXR. He was started on broad spectrum antibiotics with Vancomycin and Zosyn for healthcare acquired pneumonia as he recently finished azithromycin course. Cardiology was consulted. lopressor was increased to [address] did confirm multifocal consolidation. He improved symptomatically with antibiotics. Blood cultures, sputum culture did not grow any organism, respiratory panel, urine antigen tests were negative. Pneumonia was thought to be bacterial in nature however organism remained unclear. Antibiotics were descelated. Patient was ultimately discharged on augmentin for 5 more days to finish 10 day course. Discharge discussed with: patient, nurse, social work, case management - Time Spent with Patient Total time spent providing and/or coordinating discharge services: Time spent: Greater than 30 minutes (38) - Discharge Medications Prescriptions: New Amoxicillin/Potassium Clav [Augmentin Xr 1,000-62.5 Tab] 1 each PO BID 5 Days #10 tab.er.12h Metoprolol [Lopressor] 50 mg PO BID 30 Days #60 tablet Continue Apixaban [Eliquis] 5 mg PO BID Aspirin [Lo-Dose Aspirin EC] 81 mg PO DAILY Atorvastatin [Lipitor] 40 mg PO DAILY Fenofibrate Nanocrystallized [Fenofibrate] 160 mg PO DAILY Multivitamin [One Daily Essential] 1 tab PO DAILY [place]-3/Dha/Epa/Fish Oil [Fish Oil 1,000 mg Softgel] 1 cap PO DAILY Losartan/HCTZ [Hyzaar 50-12.5 Tablet] 1 each PO DAILY Tamsulosin [Flomax] 0.4 mg PO DAILY Dutasteride [Avodart] 0.5 mg PO DAILY metFORMIN [Glucophage] 500 mg PO BIDWM Discontinued Metoprolol [Lopressor] 25 mg PO BID Azithromycin [Zithromax] 250 mg PO DAILY #4 tablet Home Medications: Dutasteride [Avodart] 0.5 mg PO DAILY 09/29/15 [History] Tamsulosin [Flomax] 0.4 mg PO DAILY 09/29/15 [History] Apixaban [Eliquis] 5 mg PO BID 11/27/16 [History] metFORMIN [Glucophage] 500 mg PO BIDWM 12/09/18 [History] Aspirin [Lo-Dose Aspirin EC] 81 mg PO DAILY 12/10/18 [History] Atorvastatin [Lipitor] 40 mg PO DAILY 12/10/18 [History] Fenofibrate Nanocrystallized [Fenofibrate] 160 mg PO DAILY 12/10/18 [History] Multivitamin [One Daily Essential] 1 tab PO DAILY 12/10/18 [History] [place]-3/Dha/Epa/Fish Oil [Fish Oil 1,000 mg Softgel] 1 cap PO DAILY 12/10/18 [History] Losartan/HCTZ [Hyzaar 50-12.5 Tablet] 1 each PO DAILY 12/15/18 [History] Amoxicillin/Potassium Clav [Augmentin Xr 1,000-62.5 Tab] 1 each PO BID 5 Days #10 tab.er.12h 12/18/18 [Rx] Metoprolol [Lopressor] 50 mg PO BID 30 Days #60 tablet 12/18/18 [Rx] Allergies/Adverse Reactions: 3 Allergy/AdvReac Type Severity Reaction Status Date / Time GORDO Inhibitors AdvReac Cough Verified 12/05/16 09:55 Date of admission: 12/16/18 14:18 Primary care physician: Lake Brooks MD Consults: 12/15/18 11:55 Consult to Cardiology [CONS] Stat Comment: Consulting Provider: Kian Hsu Reason for Consult: afib with rvr, vtach Call Completed: Yes 12/16/18 09:38 Consult to Nurse Navigator [CONS] Routine Comment: pn Discharging clinician: Juliette Clarke - Constitutional Vitals: Temp Pulse Resp BP Pulse Ox 97.7 F 103 20 113/67 90 12/18/18 07:53 12/18/18 07:53 12/18/18 07:53 12/18/18 07:53 12/18/18 10:07 Exam: General: In no acute distress. Respiratory exam: CTAB. no accessory muscle use, rales, rhonchi, wheezes Cardiovascular exam: RRR, irregular, +S1, +S2. systolic murmur GI/Abdominal exam: Non-tender, Non-distended, normal bowel sounds, soft, no peritoneal signs. Extremities exam: full ROM, 1+ pedal edema, warm, no calf tenderness Neurological exam: CN II-XII intact, AO X3, no focal deficits. Skin exam: No skin rash - Patient Status Disposition: Home, Self-Care Condition: Good - Discharge Instructions Follow Up With: Lake Brooks MD [Primary Care Provider] - (Office is closed at this time. Will reopen at 1pm. Will schedule if patiet is still here, if not please call and schedule a hospital follow up in 5-7 days. Thank you!) Kian Hsu, [Partnered Physician] - (Follow up as outpatient in 1 month )
[2018-12-18 12:28] VITALS: BP 124/81
== END 2018-12-18 15:37 | disposition home or self-care (01) | DRG 308 ==
LOC: 2ANU 10:00 → EMEROOARM 10:00 → SUATTDRO 12:54 → 2ANU 14:19
PROVIDERS: ADMIT Internal Medicine; ATTEND Internal Medicine